=== PATIENT | female | born 2000 | race Caucasian/White ===

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

== ENCOUNTER 2020-07-29 03:16 | Emergency (ER) | payer MEDICAID, SELFPAY ==
[2020-07-29 03:18] VITALS: BP 136/72; PULSE 104; RESP 20; TEMP 35.7; O2SAT 100; BMI 30.9
--- NOTE | 2020-07-29 03:36 | ED.DCSUM_ITS ---
History of Present Illness Chief Complaint: Nausea/Vomiting Informant: Patient Narrative: Patient stated she developed nausea with vomiting approximately 2 hours ago at home. She ate some pizza this evening. She had 2 episodes of diarrhea and greater than 10 episodes of nonbloody emesis. She has some abdominal pain periumbilical that is sharp in nature mainly with vomiting. No fevers or chills. No home treatment. She has had this in the past. Worsened by nothing. Relieved by nothing. She rarely gets menses Secondary to her IUD. Denies . 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 (4) Lactic acidosis Status: Resolved Comment: trending down lactate level Past Medical History - Allergies and Home Meds Allergies/Adverse Reactions: Allergies bee venom protein (honey bee) Allergy (Verified 07/29/20 03:17) Hives cashew nut Allergy (Verified 07/29/20 03:17) Swelling tree nut Allergy (Verified 07/29/20 03:17) Anaphylaxis fluticasone [From Flonase] Adverse Reaction (Verified 07/29/20 03:17) Other SNEEZING, ASTHMA Primary Care Physician: Jenn Scott MD [NON-STAFF] - Prior records reviewed: Yes Past Medical History: - - See HPI Surgical History: - - Reviewed Alcohol: None Drugs: None - Family History Maternal Family History: Reports: Diabetes Review of Systems General: Denies: Chills, Fever, Sweats Eyes: Denies: Visual changes - bilaterally, Diplopia ENT: Denies: Rhinorrhea, Sore throat Cardiovascular: Denies: Chest pain, Palpitations Respiratory: Denies: Dyspnea, Cough, Dyspnea on exertion Gastrointestinal: Reports: Abdominal pain, Nausea, Vomiting, Diarrhea. Denies: Melena, Hematochezia Genitourinary: Denies: Dysuria, Hematuria, Frequency Musculoskeletal: Denies: Back pain, Extremity Pain Skin: Denies: Rash, Wounds Neurological: Denies: Headache, Weakness, Numbness Physical Exam Vital Signs/Narrative: Vital Signs Temp Pulse Resp BP Pulse Ox 07/29/20 03:18 96.2 F L 104 H 20 H 136/72 H 100 General: Well nourished, Well developed, No Acute Distress Head: Normocephalic, Atraumatic Eyes: Perrl, EOMI ENT: Moist mucous membranes, No rhinorrhea Neck: Supple, Nontender Cardiovascular: Regular rate, Regular rhythm, No murmurs Respiratory: No distress, CTA bilaterally, Chest nontender Abdomen: Soft, Nontender, Nondistended, Normal bowel sounds Back: Nontender, Normal Inspection Extremities: Nontender, No edema Skin: Normal color, No rash Neurological: Alert, Oriented x3, Cranial nerves II-XII grossly intact, Normal Strength, Normal Sensation Psychological: Normal affect, Normal Mood Diagnostic/Tx/Re-eval - Medical Decision Making Given IV fluids Toradol Zofran. Lab work obtained and lab work shows a leukocyte count of 24,000. I suspect a lot of this is acute phase reactant secondary to up to 20 episodes of vomiting in the last 2 hours. She stated she felt fine before this came on tonight. She also had 2 episodes of diarrhea. She was able to give a urine specimen which appeared slightly dark. Urinalysis did show white blood cells epithelials and 3+ bacteria. I will err on the side of caution and treat this. She is not having any urinary symptoms however. She is having no pain over her kidneys. She points to just above her umbilicus where she feels discomfort which is better after Toradol. Her nausea has subsided after Zofran. Patient given 2 L of fluid in the department. CT abdomen pelvis was obtained shows nothing acute. No evidence of appendicitis. Patient given a dose of ceftriaxone in the department. I discussed admission versus discharge with the patient and feel she can go home. She is in agreement to this. Again I feel her leukocytosis is likely acute reaction to the amount of vomiting she was having at home. She would like to try antibiotics. I will give her Cipro and Zofran for home. She will return if she worsens ED Disposition - Plan for ED Patient: Disposition: Home or Assisted Living Diagnosis: Nausea and vomiting, Urinary tract infection, Epigastric abdominal pain Instructions: ED Vomiting and Diarrhea Nonspecific Adult, Understanding Urinary Tract Infections (UTIs) Prescriptions: Ciprofloxacin [Cipro] 500 mg PO BID #14 tab Transmission Status: Pending to [facility] Ondansetron [Zofran Odt] 8 mg PO Q8H PRN PRN #20 tab PRN Reason: Nausea Transmission Status: Pending to [facility] Referrals: Jenn Scott MD [NON-STAFF] -
[2020-07-29 03:41] LABS: Absolute Lymphocyte Count 4.66 X10^3/uL (0.83-4.51); Absolute Neutrophil Count 17.6 X10^3/uL (2.0-7.7); Basophil# 0.05 X10^3/uL; Basophil% 0.2 % (0-1); Eosinophil# 0.54 X10^3/uL; Eosinophils% 2.2 % (0-5); Hematocrit 42.4 % (37-47); Hemoglobin 14.5 g/dL (12.0-15.0); Lymphocyte # 4.66 X10^3/ul (4.0); Lymphocyte % 19.1 % (19-41); Mean Corp Hgb Conc 34.2 g/dL (32-36); Mean Corpuscular Hgb 29.1 pg (27.0-32.0); Mean Corpuscular Volume 85.1 fL (81-99); Monocyte# 1.37 X10^3/uL; Monocyte% 5.6 % (0-10); NRBC Flagged by Analyzer 0 % (0-5); Neutrophil % 72.3 % (47-70); Platelet Count 347 K/mm3 (150-450); RBC Distribution Width CV 12.6 % (11.6-14.6); RBC Distribution Width SD 38.4 fl (35.1-43.9); Red Blood Count 4.98 M/mm3 (4.2-5.4); White Blood Count 24.4 K/mm3 (4.4-11.0)
[2020-07-29] MEDS: 0.9% Normal Saline 1,000 ML 1000 ML IV ×2 (03:42→05:27)
[2020-07-29] MEDS: Ketorolac 30 MG/ML Syringe IV (03:42)
[2020-07-29] MEDS: Ondansetron 4 MG/2 ML Vial IV (03:42)
--- NOTE | 2020-07-29 03:47 | CT_ITS ---
STUDY: CT ABDOMEN AND PELVIS WITHOUT CONTRAST REASON FOR EXAM: Female, 20 years old. Abdominal pain, nausea and vomiting. Elevated white blood count. Negative test. RADIATION DOSAGE (If Supplied By Facility): CTDIvol = ( 12.01 ) mGy, DLP = ( 654.05 ) mGycm TECHNIQUE: Transaxial images were obtained from the dome of the diaphragm to the symphysis pubis without oral contrast, and without intravenous contrast. Sagittal and coronal images were reconstructed. Individualized dose optimization techniques were used for this CT. COMPARISON: February 02, 2019. FINDINGS: The visualized lung bases are unremarkable. The visualized portions of the heart are within normal limits. Normal liver. Normal gallbladder and extrahepatic biliary system. Normal spleen. Normal pancreas. Normal bilateral adrenal glands. Normal right kidney. Several 1 mm nonobstructing inferior pole left renal calculi, unchanged. 2 mm x 2 mm calcification anterior to the left psoas muscle, outside the course of the left ureter, most likely representing an incidental phlebolith and not present previously. Stomach is not well distended limiting evaluation. Normal small intestine. Normal colon. The appendix is visualized and appears normal. Normal abdominal aorta. Normal inferior vena cava. Normal retroperitoneum. No intra-abdominal free air. Normal urinary bladder. Uterus is grossly normal. No adnexal mass is seen. Normal abdominal wall. Normal osseous structures. CT/Abdomen/Pelvis without Cont IMPRESSION: No acute findings in the abdomen or pelvis. Small nonobstructing left renal calculi, unchanged. No evidence of bowel obstruction. Normal appendix. Electronically Signed: Ray Albarran MD at 4:57 EDT , Service support ,
[2020-07-29 03:48] LABS: Internal QC Validated? YES +Cl - CLEAR BKGD; Pregnancy, Serum, hCG Quali. NEGATIVE Negative
[2020-07-29 04:01] LABS: ALB/GLOB Ratio 0.9 RATIO (0.9-2.4); AST(SGOT) 28 U/L (15-37); Alanine Aminotransfer ALT/SGPT 28 U/L (13-56); Albumin, Serum 4.1 g/dL (3.2-5.0); Alkaline Phosphatase 81 U/L (45-117); Anion Gap 11 (5-15); BUN 12 mg/dL (7-18); BUN/Creat Ratio 13.4 RATIO (10-20); Calcium,Total 9.6 mg/dL (8.5-10.1); Chloride 105 mmol/L (98-107); Creatinine, Serum 0.89 mg/dL (0.55-1.02); EST Glomerular Filtration Rate 85 mL/min (>60); Est Glom Filt Rate - Afr Amer 103 mL/min (>60); Estimated Creatinine Clearance 87.07 ml/min; Globulin 4.4 g/dL (2.2-4.2); Glucose 140 mg/dL (74-106); Lipase 125 U/L (73-393); Potassium 3.5 mmol/L (3.5-5.1); Protein, Total 8.5 g/dL (6.4-8.2); Sodium Level 135 mmol/L (136-145)
[2020-07-29 04:29] LABS: Color, Urine Straw (Yellow); Glucose, Dipstick Normal (Normal); Ketone-Dipstick 15 mg/dl (Negative); Leukocyte Esterase-Dipstick 25 /ul (Negative); Mucous, Urine 0 SEEN /hpf (<or=2+); Nitrite-Dipstick Negative (Negative); Occult Blood-Urine 250 /ul (Negative); Protein-Dipstick 100 mg/dl (Negative); Urine Bilirubin Dipstick 1 mg/dL (Negative); Urine Clarity Cloudy (Clear); Urine Urobilinogen 1 mg/dl (Normal)
[2020-07-29 04:36] LABS: Bacteria 3+ /hpf (None Seen); Red Blood Cells-Urine 5-10 SEEN /hpf (0-5); Squamous Epithelial Cells - UA 5-10 SEEN /hpf (5-10); White Blood Cells 5-10 SEEN /hpf (0-5); Yeast-Urine 2+ /hpf (None Seen)
[2020-07-29] MEDS: Ceftriaxone 1 GM/50 ML BAG IV (05:26)
[2020-07-29 05:35] VITALS: RESP 18
[2020-07-29 07:39] VITALS: BP 124/74; PULSE 87; RESP 16; O2SAT 99
== END 2020-07-29 07:41 | disposition home or self-care (01) ==
PROVIDERS: Emergency Provider Emergency Medicine
DX: R11.2 Nausea with vomiting, unspecified (principal); N39.0 Urinary tract infection, site not specified; R10.13 Epigastric pain
CPT/HCPCS: 74176; 80053; 81001; 83690; 84703; 85025; 87086; 87088; 96361; 96365; 96366; 96375; 99282; J7030; A4216; J2405

== ENCOUNTER → 2020-10-20 10:18 | Outpatient (CLI) | payer MEDICAID, SELFPAY | PROVIDERS: Referring Provider Otolaryngology; Visit Provider Otolaryngology | DX: Z20.828 Contact with and (suspected) exposure to other viral communicable diseases (principal) | CPT/HCPCS: 87635; C9803; U0003 ==

== ENCOUNTER → 2020-10-25 | Outpatient (CLI) | payer MEDICAID, SELFPAY ==
--- NOTE | 2020-10-25 10:00 | ETH_PTH ---
PATIENT: RITO JENNINGS LOC: [facility]#:[id number] AGE/SX: 20/F ROOM: RE10/25/[address]: Dr. Asad Azul MD : 2000 BED: DIS: 10/25/2020 SPEC #: [id number] RECD: 10/25/20 15:12 STATUS: ANNABEL REMaxi #: [id number] LAINE: 10/25/20 10:[address]: Asad Azul DEPT: SURGICAL PATHOLOGY RECD BY: Nat Stephens ENTERED: 10/26/20 07:08 SP TYPE: ETH TISS OTHR DR: No Primary Care Phys WAS Tissues: Ethmoid sinus, NOS Procedures: Decalcification bone/plaque Surgery Specimen Level III HEADER OPERATION: Septoplasty, submucous resection of inferior turbinates PRE-OP DIAGNOSIS: Nasal airway obstruction; deviated septum; inferior turbinate hypertrophy TISSUE SUBMITTED: Right sinus contents MICROSCOPIC DIAGNOSIS Right sinus contents, excision: Fragments of hyaline cartilage and bone with focal reactive and reparative change. AM:ashly 10/28/20 MICROSCOPIC DESCRIPTION Slides are reviewed. GROSS DESCRIPTION Received in fixative is one container labeled with the patient's name and designated right sinus contents. The specimen consists of multiple irregular fragments of velázquez-white soft tissue and bony tissue that in aggregate measure 2.2 x 2 x 0.2 cm. The specimen is totally submitted in one cassette after decalcification. / SJ:ashly 10/26/20 TC:5 CPT: 16240, 21013
== END | disposition home or self-care (01) ==
LOC: LABSPEC 15:41
PROVIDERS: Visit Provider Otolaryngology
DX: J34.2 Deviated nasal septum (principal); J34.3 Hypertrophy of nasal turbinates
CPT/HCPCS: 88304; 88305; 88311

== ENCOUNTER 2022-02-14 14:41 | Emergency (ER) | payer BC, SELFPAY ==
[2022-02-14 14:42] VITALS: BP 123/75; PULSE 74; RESP 16; TEMP 36.3; O2SAT 98; BMI 34.0
--- NOTE | 2022-02-14 15:05 | ED.VIS.FEGU ---
HPI HPI - Female History of Present Illness Chief Complaint: Vag Bld, Preg Informant: patient Pain Pain: Positive for Pelvic Pain Onset: Today Context: Gradual Onset Timing: Waxes and wanes Quality: Positive for Cramping Location: Suprapubic Current Severity: Mild Maximum Severity: Mild Bleeding Issue: Positive for Vaginal bleeding Onset: Today Current Severity: Spotting Narrative Narrative: Patient presents secondary to vaginal bleeding. She was seen in the [place] emergency room over the weekend and found out she was . Quant was 2033 and ultrasound confirmed intrauterine at 5 weeks 5 days. No cardiac activity noted yet. Patient states she had some cramping today and started noticing some blood when she was wiping. She does not know her blood type. She is scheduled to see Dr. Adriel Stringer for a first-time visit in 2 weeks. [facility] Medical History Asthma Home Medications hydrocodone-acetaminophen 1 tab PO Q6H PRN 3 Days #10 tab 02/14/22 [Rx Last Taken Unknown] Allergy/AdvReac Type Severity Reaction Status Date / Time bee venom protein (honey bee) Allergy Hives Verified 02/14/22 14:42 cashew nut Allergy Swelling Verified 02/14/22 14:42 tree nut Allergy Anaphylaxis Verified 02/14/22 14:42 fluticasone [From Flonase] AdvReac Other Verified 02/14/22 14:42 Social History Smoking Status: Never smoker ROS ROS ED Constitutional Constitutional ED: Denies chills or fever(s) Eyes Eyes: Denies change in vision ENT ENT ED: Denies sore throat Cardiovascular Cardiovascular: Denies chest pain Respiratory/Chest Respiratory/Chest: Denies cough or dyspnea Gastrointestinal Gastrointestinal: Reports abdominal pain; Denies nausea or vomiting Genitourinary Genitourinary ED: Denies dysuria Musculoskeletal Musculoskeletal: Denies back pain Integumentary Denies rash Neurologic Neurologic: Denies headache(s) or weakness Allergic/Immunologic Allergic/Immunologic ED: Denies urticaria EXAM Physical Exam Const Vital Signs: 02/14/22 14:42 Temperature 97.3 F L Temperature Source Temporal Pulse Rate 74 Respiratory Rate 16 Blood Pressure 123/75 H Blood Pressure Mean 91 Pulse Ox 98 Oxygen Delivery Method Room Air Positive well nourished and well developed General Appearance ED: well developed HEENT Reports moist mucous membranes Eyes PERRL and EOMs intact bilaterally Neck supple Chest Wall inspection of chest normal and palpation of chest normal Resp normal respiratory effort and clear to auscultation bilaterally Cardio regular rate and regular rhythm GI soft to palpation and non-tender Extremity normal to inspection Neuro oriented x3 Sensorium / Orientation: alert Psych mental status grossly normal Skin no rashes or lesions noted MDM MDM MDM Narrative Medical decision making narrative: Urinalysis obtained along with quant and blood type. Lab Data Attestation: I reviewed the patient's lab results. Labs: Laboratory Results - last 24 hr 02/14/22 02/14/22 02/14/22 15:10 15:20 15:20 HCG, Quant 979 H Urine Color Yellow Urine Clarity Sl. Cloudy Urine pH 6.0 Ur Specific [place] 1.025 Urine Protein 30 H Urine Glucose (UA) Normal Urine Ketones 5 H Urine Occult Blood 250 H Urine Nitrite Negative Urine Bilirubin Negative Urine Urobilinogen Normal Ur Leukocyte Esterase 100 H Urine RBC 0-5 SEEN Urine WBC 0-5 SEEN Ur Squamous Epith Cells 0-5 SEEN Urine Bacteria RARE Urine Mucus 0 SEEN Blood Type O POSITIVE Treatment and Re-Evaluation Narrative: Urinalysis reveals no sign of acute infection. Blood type is O+. Quant is 979. This is compared to a quant of 2033 obtained on February 11. I spoke with Dr. Lidia Pride, on-call for [employer]. She does not see that the patient is scheduled to see them. After speaking with the patient she states that she is still listed under her maiden name in the office and that is why they did not recognize her upcoming appointment. Test results are discussed with the patient and family at bedside. I told her that her lab work is indicative of a miscarriage. I suspect that at 5 weeks she would likely pass everything similar to a heavy period. She will be given analgesics for cramping should this get worse. Return instructions are provided. Discharge Plan Triage Chief Complaint: Vag Bld, Preg ED Provider: Veena Bhat Dx/Rx/DC Orders Clinical Impression: Miscarriage Instructions: ED MISCARRIAGE Incomplete Prescriptions: New hydrocodone-acetaminophen 5-325 mg tablet 1 tab PO Q6H PRN (Reason: pain) 3 Days Qty: 10 RF: 0 Primary Care Provider: Care Physician,Kavya Primary Referrals: Adriel Stringer MD [STAFF PHYSICIAN] - 1 Week Care Physician,No Primary [Primary Care Provider] - Disposition Disposition: Home, Self Care
[2022-02-14 15:28] LABS: Mucous, Urine 0 SEEN /hpf (<or=2+)
[2022-02-14 15:33] LABS: Color, Urine Yellow (Yellow); Glucose, Dipstick Normal (Normal); Ketone-Dipstick 5 mg/dl (Negative); Leukocyte Esterase-Dipstick 100 /ul (Negative); Nitrite-Dipstick Negative (Negative); Occult Blood-Urine 250 /ul (Negative); Protein-Dipstick 30 mg/dl (Negative); Specific Gravity, Urine 1.025 (1.002-1.030); Urine Bilirubin Dipstick Negative (Negative); Urine Clarity Sl. Cloudy (Clear); Urine Urobilinogen Normal (Normal)
[2022-02-14 15:46] LABS: Bacteria RARE /hpf (None Seen); Red Blood Cells-Urine 0-5 SEEN /hpf (0-5); Squamous Epithelial Cells - UA 0-5 SEEN /hpf (5-10); White Blood Cells 0-5 SEEN /hpf (0-5)
[2022-02-14 16:10] LABS: hCG Titer Quant., Serum 979 mIU/mL (1-3)
== END 2022-02-14 16:43 | disposition home or self-care (01) ==
PROVIDERS: Emergency Provider Emergency Medicine; Visit Provider Emergency Medicine
DX: O03.4 Incomplete spontaneous abortion without complication (principal)
CPT/HCPCS: 81001; 84702; 86900; 86901; 99283; A4216

== ENCOUNTER → 2022-02-28 | Outpatient (CLI) | payer BC, SELFPAY ==
[2022-02-28 12:42] LABS: hCG Titer Quant., Serum 94 mIU/mL (1-3)
== END | disposition home or self-care (01) ==
PROVIDERS: Visit Provider Obstetrics & Gynecology
DX: O03.9 Complete or unspecified spontaneous abortion without complication (principal)
CPT/HCPCS: 36415; 84702; 86900; 86901

== ENCOUNTER 2022-07-25 09:59 | Emergency (ER) | payer MEDICAID, SELFPAY ==
[2022-07-25 10:00] VITALS: BP 147/86; PULSE 90; RESP 18; TEMP 36.6; O2SAT 98; BMI 36.0
--- NOTE | 2022-07-25 10:29 | US_ITS ---
STUDY: FIRST TRIMESTER OBSTETRICAL ULTRASOUND REASON FOR EXAM: Female, 22 years old vag bleed -- 8 weeks by dates LMP: 06/01/2022. TECHNIQUE: Transabdominal TECHNICAL QUALITY: Adequate. PRIOR ULTRASOUND: None. FINDINGS: There is a gestational sac in the lower uterine segment. The mean sac diameter (MSD) measures 2.54 cm, indicating an estimated gestational age (EGA) of 7 weeks, 4 days. The gestational sac shape is within normal limits. There is a visualized yolk sac. The yolk sac measures 3.6 mm. The placenta is non-visualized. There is visualization of a live embryo. The crown-rump length (CRL) measures 1.28 cm, indicating an estimated gestational age (EGA) of 7 weeks, 4 days. There is demonstrated cardiac activity with a heart rate of 147 bpm. The estimated gestation age (EGA) by LMP is 7 weeks, 5 days. The estimated date of delivery (HETAL) by LMP is 03/08/2023. The estimated gestation age (EGA) by US is 7 weeks, 4 days. The estimated date of delivery (HETAL) by US is 03/09/2023. The uterus measures 9.5 cm x 6.8 cm by 5.3 cm. There is no demonstrated uterine fibroid. The cervix is closed. The right ovary measures 3.4 cm x 2.6 cm x 3.2 cm. There is a 2.3 cm x 1.9 cm x 2.2 cm corpus luteum cyst. There is no visualized right adnexal mass or complex lesion. The left ovary was not visualized. There is no fluid in the cul de sac. US/Init OB < 14Wks US IMPRESSION: Single live intrauterine gestation with a mean gestational age of 7 weeks and 4 days. The gestational sac is seen in the lower uterine segment. 2.3 cm x 1.9 cm x 2.2 cm right corpus luteum cyst. Electronically Signed: Lasha Jordan MD at 12:38 EDT ,
--- NOTE | 2022-07-25 10:35 | EDS_ITS ---
HPI HPI - Female History of Present Illness Chief Complaint: Vag Bld, Preg Informant: patient Narrative Narrative: Patient presents noting blood after using the restroom and small clot while wiping. 8 weeks gestation by dates. She has upcoming appoint with Dr. Adriel Stringer next week. She had a miscarriage this past January with cramping. There is no intervention required. No urinary symptoms. No abdominal pain. No fevers. Denies alcohol tobacco or illicit drug use. Prior similar symptoms: Yes PFSH PFSH Medical History Asthma Home Medications hydrocodone-acetaminophen 5-325mg 5mg-325mg 1 tab PO Q6H PRN pain 3 days #10 tabs 02/14/22 [Rx Last Taken Unknown] cephalexin 500 mg capsule 500 mg PO Q12 #9 caps 07/25/22 [Rx Last Taken Unknown] Allergy/AdvReac Type Severity Reaction Status Date / Time bee venom protein (honey bee) Allergy Hives Verified 07/25/22 10:02 cashew nut Allergy Swelling Verified 07/25/22 10:02 tree nut Allergy Anaphylaxis Verified 07/25/22 10:02 fluticasone [From Flonase] AdvReac Other Verified 07/25/22 10:02 Social History Smoking Status: Never smoker EXAM Physical Exam Const Vital Signs: 07/25/22 10:00 07/25/22 13:24 07/25/22 13:27 Temperature 98 F Temperature Source Temporal Pulse Rate 90 73 Respiratory Rate 18 16 Blood Pressure 147/86 H Blood Pressure Mean 106 Pulse Ox 98 99 Oxygen Delivery Method Room Air Room Air [facility] Lab Data Labs: Laboratory Results - last 24 hr 07/25/22 07/25/22 10:45 10:52 HCG, Quant 99946 H Urine Color Yellow Urine Clarity Clear Urine pH 8.0 Ur Specific [place] 1.015 Urine Protein Negative Urine Glucose (UA) Normal Urine Ketones Negative Urine Occult Blood 250 H Urine Nitrite Negative Urine Bilirubin Negative Urine Urobilinogen Normal Ur Leukocyte Esterase 25 H Urine RBC 0-5 SEEN Urine WBC 0-5 SEEN Ur Squamous Epith Cells 0-5 SEEN Urine Bacteria RARE Urine Mucus 0 SEEN Radiography Diagnostic Testing: Clinical Impression(s) from Imaging Studies Obstetrics Ultrasound 07/25/22 10:29 IMPRESSION: Single live intrauterine gestation with a mean gestational age of 7 weeks and 4 days. The gestational sac is seen in the lower uterine segment. 2.3 cm x 1.9 cm x 2.2 cm right corpus luteum cyst. Electronically Signed: Lasha Jordan MD at 12:38 EDT , Discharge Plan Triage Chief Complaint: Vag Bld, Preg ED Provider: Sincere Alston Dx/Rx/DC Orders Clinical Impression: Threatened miscarriage, First trimester , UTI in , Corpus luteum cyst Instructions: Urinary Tract Infections in Women, ED Possible Miscarriage ... Prescriptions: New cephalexin [cephalexin] 500 mg capsule 500 mg PO Q12 Qty: 9 0RF No Action hydrocodone-acetaminophen 5-325 mg tablet 1 tab PO Q6H PRN (Reason: pain) 3 Days Qty: 10 0RF Primary Care Provider: Care Physician,No Primary Referrals: Adriel Stringer MD [Med Staff - Active Staff] - Keep Espinoza appointment Care Physician,No Primary [Primary Care Provider] - Activity Restrictions/Additional Instructions: 7-week 4-day heart tones 147. Corpus luteum cyst also found. Take antibiotic as prescribed for UTI. Urine culture pending. Pelvic rest as discussed. Keep follow-up with your OB. Disposition Disposition: Home, Self Care Discharge Date/Time: 07/25/22 13:34
--- NOTE | 2022-07-25 10:35 | EDS_ITS ---
HPI HPI - Female History of Present Illness Chief Complaint: Vag Bld, Preg Informant: patient Narrative Narrative: 8-week gestation by dates has a pending OB appointment next week with Dr. Adriel Stringer. Miscarriage back in January with no required intervention. Blood type a positive. This morning a code rescue noted bright red blood wiping noted small clot. Denies cramping. Denies urinary symptoms. Denies abnormal vaginal discharge. Denies any alcohol, tobacco or any illicit drug use. Denies any urinary symptoms. History of IBS and asthma. Prior similar symptoms: Yes PFSH PFSH Medical History Asthma Home Medications hydrocodone-acetaminophen 5-325mg 5mg-325mg 1 tab PO Q6H PRN pain 3 days #10 tabs 02/14/22 [Rx Last Taken Unknown] cephalexin 500 mg capsule 500 mg PO Q12 #9 caps 07/25/22 [Rx Last Taken Unknown] Allergy/AdvReac Type Severity Reaction Status Date / Time bee venom protein (honey bee) Allergy Hives Verified 07/25/22 10:02 cashew nut Allergy Swelling Verified 07/25/22 10:02 tree nut Allergy Anaphylaxis Verified 07/25/22 10:02 fluticasone [From Flonase] AdvReac Other Verified 07/25/22 10:02 Social History Smoking Status: Never smoker ROS ROS ED Constitutional Constitutional ED: Denies chills, fever(s) or sweats Eyes Eyes: Denies change in vision ENT ENT ED: Denies dysphagia or sore throat Cardiovascular Cardiovascular: Denies chest pain, leg edema, palpitations or racing heartbeat Respiratory/Chest Respiratory/Chest: Denies cough, dyspnea or dyspnea on exertion Gastrointestinal Gastrointestinal: Denies abdominal pain, diarrhea, nausea or vomiting Genitourinary Genitourinary ED: Reports other Details: Vaginal bleeding ; Denies dysuria, hematuria or urinary frequency Musculoskeletal Musculoskeletal: Denies back pain, extremity pain or neck pain Integumentary Denies rash or wounds Neurologic Neurologic: Denies headache(s), paresthesias or weakness EXAM Physical Exam Const Vital Signs: 07/25/22 10:00 07/25/22 13:24 07/25/22 13:27 Temperature 98 F Temperature Source Temporal Pulse Rate 90 73 Respiratory Rate 18 16 Blood Pressure 147/86 H Blood Pressure Mean 106 Pulse Ox 98 99 Oxygen Delivery Method Room Air Room Air Positive well nourished and well developed General Appearance ED: well developed and NAD HEENT Reports moist mucous membranes normocephalic and atraumatic Eyes PERRL, EOMs intact bilaterally and conjunctivae normal General Eye ED: Yes normal appearance of both eyes Neck no lymphadenopathy and supple General: Negative for tenderness Chest Wall Chest: Negative for tenderness Resp normal respiratory effort and normal air movement Effort and Inspection: symmetric chest movement; Negative for respiratory distress Cardio regular rate, regular rhythm and no murmurs Peripheral Pulses: pulses 2+ throughout GI normal to inspection, nondistended, normoactive bowel sounds and non-tender Palpation: Negative for guarding or rebound tenderness present Back/Spine no CVA tenderness and no thoracic nor lumbar tenderness Extremity normal to inspection General Extremety ED: Negative for edema or tenderness General Extremity: Negative for edema Neuro oriented x3 and no sensory deficits noted Sensorium / Orientation: awake and alert Skin no rashes or lesions noted and no wounds MDM MDM MDM Narrative Medical decision making narrative: Patient vital signs stable. She O+ blood type in the system. hCG quant at 36,000 578. Ultrasound notes a single live intrauterine at 7 weeks 4 days. heart tones 147. Corpus luteum cyst right side of 2.3 cm. Urine noted signs of infection culture sent. With threatened miscarriage she started on Keflex. Pelvic rest discussed. Monitor for bleeding. Follow-up with her OB as scheduled next week. All questions were answered. Lab Data Attestation: I reviewed the patient's lab results. Labs: Laboratory Results - last 24 hr 07/25/22 07/25/22 10:45 10:52 HCG, Quant [id number] H Urine Color Yellow Urine Clarity Clear Urine pH 8.0 Ur Specific [place] 1.015 Urine Protein Negative Urine Glucose (UA) Normal Urine Ketones Negative Urine Occult Blood 250 H Urine Nitrite Negative Urine Bilirubin Negative Urine Urobilinogen Normal Ur Leukocyte Esterase 25 H Urine RBC 0-5 SEEN Urine WBC 0-5 SEEN Ur Squamous Epith Cells 0-5 SEEN Urine Bacteria RARE Urine Mucus 0 SEEN Radiography Diagnostic Testing: Clinical Impression(s) from Imaging Studies Obstetrics Ultrasound 07/25/22 10:29 IMPRESSION: Single live intrauterine gestation with a mean gestational age of 7 weeks and 4 days. The gestational sac is seen in the lower uterine segment. 2.3 cm x 1.9 cm x 2.2 cm right corpus luteum cyst. Electronically Signed: Lasha Jordan MD at 12:38 EDT , Discharge Plan Triage Chief Complaint: Vag Bld, Preg ED Provider: Sincere Alston Dx/Rx/DC Orders Clinical Impression: Threatened miscarriage, First trimester , UTI in , Corpus luteum cyst Instructions: Urinary Tract Infections in Women, ED Possible Miscarriage ... Prescriptions: New cephalexin [cephalexin] 500 mg capsule 500 mg PO Q12 Qty: 9 0RF No Action hydrocodone-acetaminophen 5-325 mg tablet 1 tab PO Q6H PRN (Reason: pain) 3 Days Qty: 10 0RF Primary Care Provider: Care Physician,No Primary Referrals: Adriel Stringer MD [Med Staff - Active Staff] - Keep Espinoza appointment Care Physician,No Primary [Primary Care Provider] - Activity Restrictions/Additional Instructions: 7-week 4-day heart tones 147. Corpus luteum cyst also found. Take antibiotic as prescribed for UTI. Urine culture pending. Pelvic rest as discussed. Keep follow-up with your OB. Disposition Disposition: Home, Self Care Discharge Date/Time: 07/25/22 13:34
[2022-07-25 10:59] LABS: Mucous, Urine 0 SEEN /hpf (<or=2+)
[2022-07-25 11:05] LABS: Color, Urine Yellow (Yellow); Glucose, Dipstick Normal (Normal); Ketone-Dipstick Negative (Negative); Leukocyte Esterase-Dipstick 25 /ul (Negative); Nitrite-Dipstick Negative (Negative); Occult Blood-Urine 250 /ul (Negative); Protein-Dipstick Negative (Negative); Specific Gravity, Urine 1.015 (1.002-1.030); Urine Bilirubin Dipstick Negative (Negative); Urine Clarity Clear (Clear); Urine Urobilinogen Normal (Normal)
[2022-07-25 11:15] LABS: Bacteria RARE /hpf (None Seen); Red Blood Cells-Urine 0-5 SEEN /hpf (0-5); Squamous Epithelial Cells - UA 0-5 SEEN /hpf (5-10); White Blood Cells 0-5 SEEN /hpf (0-5)
[2022-07-25 11:37] LABS: hCG Titer Quant., Serum 36578 mIU/mL (1-3)
--- NOTE | 2022-07-25 13:00 | CM.ED ---
SW Note SW noted that patient has no PCP. SW met with patient and provided her with [facility] List of Healthcare Providers. No further SW needs voiced at the time. SW remains available if needs arise. Plan: Resources provided Ivana BARNETT
[2022-07-25] MEDS: Cephalexin 250 MG Capsule 500 MG PO (13:23)
[2022-07-25 13:24] VITALS: RESP 16
[2022-07-25 13:27] VITALS: PULSE 73; O2SAT 99
== END 2022-07-25 13:34 | disposition home or self-care (01) ==
PROVIDERS: Emergency Provider Emergency Medicine; Visit Provider Emergency Medicine
DX: O20.0 Threatened abortion (principal); O23.41 Unspecified infection of urinary tract in pregnancy, first trimester; O34.81 Maternal care for other abnormalities of pelvic organs, first trimester; N83.11 Corpus luteum cyst of right ovary; Z3A.01 Less than 8 weeks gestation of pregnancy
CPT/HCPCS: 76801; 81001; 84702; 87086; 87088; 99284; A4216

== ENCOUNTER 2022-08-01 08:32 | Emergency (ER) | payer SELFPAY ==
[2022-08-01 08:32] VITALS: BP 122/77; PULSE 100; RESP 16; TEMP 36.1; O2SAT 98; BMI 36.7
--- NOTE | 2022-08-01 09:13 | EDS_ITS ---
HPI History of Present Illness Chief Complaint: Nausea/Vomiting/Diarrhea Informant: patient Narrative Narrative: 8-week 4-day gestation by ultrasound presents for diarrhea for 2 days vomiting today. She ate [place] food 2 days ago that evening. Loose stools nonbloody. Had it throughout the day yesterday today had at least 4 episodes yellow stools. Vomiting x4 currently nausea no hematemesis. Denies abdominal pain denies fevers denies urinary symptoms. Of note seen by myself a week ago with a diagnosis confirming with threatened miscarriage. No current vaginal bleeding. She had UTI in finished her Keflex 2 days ago. Culture in the records are just mixed likely contaminant. No one else sick in the house. [facility] Medical History Anxiety Asthma Depression IBS (irritable bowel syndrome) Allergy/AdvReac Type Severity Reaction Status Date / Time bee venom protein (honey bee) Allergy Hives Verified 08/01/22 08:32 cashew nut Allergy Swelling Verified 08/01/22 08:32 tree nut Allergy Anaphylaxis Verified 08/01/22 08:32 fluticasone [From Flonase] AdvReac Other Verified 08/01/22 08:32 Social History Smoking Status: Never smoker ROS ROS ED Constitutional Constitutional ED: Denies chills, fever(s) or sweats Eyes Eyes: Denies change in vision ENT ENT ED: Denies dysphagia or sore throat Cardiovascular Cardiovascular: Denies chest pain, leg edema, palpitations or racing heartbeat Respiratory/Chest Respiratory/Chest: Denies cough, dyspnea or dyspnea on exertion Gastrointestinal Gastrointestinal: Reports diarrhea and vomiting; Denies abdominal pain or nausea Genitourinary Genitourinary ED: Denies dysuria, hematuria or urinary frequency Musculoskeletal Musculoskeletal: Denies back pain, extremity pain or neck pain Integumentary Denies rash or wounds Neurologic Neurologic: Denies headache(s), paresthesias or weakness EXAM Physical Exam Const Vital Signs: 08/01/22 08:32 08/01/22 12:13 08/01/22 15:13 Temperature 97.0 F L Temperature Source Temporal Pulse Rate 100 80 Respiratory Rate 16 16 Blood Pressure 122/77 H 113/66 123/78 H Blood Pressure Mean 92 81 Pulse Ox 98 99 Oxygen Delivery Method Room Air Room Air Positive well nourished and well developed General Appearance ED: well developed and NAD HEENT Reports moist mucous membranes normocephalic and atraumatic Eyes PERRL, EOMs intact bilaterally and conjunctivae normal General Eye ED: Yes normal appearance of both eyes Neck no lymphadenopathy and supple General: Negative for tenderness Chest Wall Chest: Negative for tenderness Resp normal respiratory effort and normal air movement Effort and Inspection: symmetric chest movement; Negative for respiratory distress Cardio regular rate, regular rhythm and no murmurs Peripheral Pulses: pulses 2+ throughout GI normal to inspection, nondistended, normoactive bowel sounds and non-tender Palpation: Negative for guarding or rebound tenderness present Back/Spine no CVA tenderness and no thoracic nor lumbar tenderness Extremity normal to inspection General Extremety ED: Negative for edema or tenderness General Extremity: Negative for edema Neuro oriented x3 and no sensory deficits noted Sensorium / Orientation: awake and alert Skin no rashes or lesions noted and no wounds MDM MDM MDM Narrative Medical decision making narrative: Patient nontender abdomen. Nursing unable to obtain heart tones bedside ultrasound performed by myself noted heart tone of 127. Cyst lesion right adnexa also observed with her known right corpus luteum cyst. Results White count of 14. Creatinine 0.57. She is given fluids and IV Reglan initially. Symptoms were improving. Urine obtained noted white cells small leukocytes however had squamous cells 5-10. I recent cultures. Reviewing her cultures from a week ago was contaminant. She finished antibiotics yesterday. I will hold on antibiotics currently pending cultures. She require additional Reglan for symptom control. She is tolerating oral fluid intake. She reports she has promethazine sent to her pharmacy from her OB office that is waiting for her to pick up worker. I was able to obtain stool studies C. difficile negative along with enteropathic pathogens also negative from the lab. She is reassured discussed likely viral gastroenteritis at this time. Discussed importance of continuing oral fluids for hydration. She has an appointment with her OB tomorrow for which she will keep. Return precautions. All questions answered. Lab Data Attestation: I reviewed the patient's lab results. Labs: Laboratory Results - last 24 hr 08/01/22 08/01/22 08/01/22 08:50 08:50 09:34 WBC 14.7 H RBC 4.68 Hgb 13.4 Hct 40.2 MCV 85.9 MCH 28.6 MCHC 33.3 RDW Std Deviation 40.4 RDW Coeff of [place] 13.1 Plt Count 328 MPV 9.1 Immature Gran % (Auto) 0.800 Neut % (Auto) 81.4 H Lymph % (Auto) 9.9 L [place] % (Auto) 4.8 Eos % (Auto) 3.0 Baso % (Auto) 0.1 Absolute Neuts (auto) 12.0 H Absolute Lymphs (auto) 1.45 Nucleated RBC % 0 Sodium 134 L Potassium 4.5 Chloride 107 Carbon Dioxide 18.0 L Anion Gap 9 BUN 7 Creatinine 0.57 Estim Creat Clear Calc 133.68 Est GFR (MDRD) Af Amer 170 Est GFR (MDRD) Non-Af 140 BUN/Creatinine Ratio 12.3 Glucose 104 Calcium 9.4 Urine Color Yellow Urine Clarity Sl. Cloudy Urine pH 6.0 Ur Specific [place] 1.020 Urine Protein 30 H Urine Glucose (UA) Normal Urine Ketones 50 H Urine Occult Blood 10 H Urine Nitrite Negative Urine Bilirubin Negative Urine Urobilinogen Normal Ur Leukocyte Esterase 100 H Urine RBC 0-5 SEEN Urine WBC 10-25 SEEN Ur Squamous Epith Cells 5-10 SEEN Urine Bacteria 1+ Urine Mucus 2+ Discharge Plan Triage Chief Complaint: Nausea/Vomiting/Diarrhea ED Provider: Sincere Alston Dx/Rx/DC Orders Clinical Impression: Nausea vomiting and diarrhea, First trimester Instructions: ED Gastroenteritis, Viral (Adult) Primary Care Provider: Care Physician,No Primary Referrals: Adriel Srtinger MD [Med Staff - Active Staff] - Keep Espinoza appointment Care Physician,No Primary [Primary Care Provider] - Activity Restrictions/Additional Instructions: Stool studies negative for C. difficile or any enteropathic pathogens. Labs were stable. Urine culture sent since she just finished antibiotics. No urine symptoms. Continue oral fluids for hydration. Your reported promethazine is at your pharmacy which should pick up worker to use as needed. Keep your follow-up tomorrow. Return if any worsening symptoms. Disposition Disposition: Home, Self Care Discharge Date/Time: 08/01/22 15:13
[2022-08-01 09:19] LABS: Absolute Lymphocyte Count 1.45 X10^3/uL (0.83-4.51); Basophil# 0.02 X10^3/uL; Basophil% 0.1 % (0-1); Eosinophil# 0.44 X10^3/uL; Hematocrit 40.2 % (37-47); Hemoglobin 13.4 g/dL (12.0-15.0); Lymphocyte # 1.45 X10^3/ul (0.83-4.51); Lymphocyte % 9.9 % (19-41); Mean Corp Hgb Conc 33.3 g/dL (32-36); Mean Corpuscular Hgb 28.6 pg (27.0-32.0); Mean Corpuscular Volume 85.9 fL (81-99); Mean Platelet Vol. 9.1 fl (6.2-12.0); Monocyte# 0.71 X10^3/uL; Monocyte% 4.8 % (0-10); NRBC Flagged by Analyzer 0 % (0-5); Neutrophil # 11.97 X10^3/uL (2.7-7.7); Neutrophil % 81.4 % (47-70); Platelet Count 328 K/mm3 (150-450); RBC Distribution Width CV 13.1 % (11.6-14.6); RBC Distribution Width SD 40.4 fl (35.1-43.9); Red Blood Count 4.68 M/mm3 (4.2-5.4); White Blood Count 14.7 K/mm3 (4.4-11.0)
[2022-08-01 09:41] LABS: Color, Urine Yellow (Yellow); Glucose, Dipstick Normal (Normal); Ketone-Dipstick 50 mg/dl (Negative); Leukocyte Esterase-Dipstick 100 /ul (Negative); Nitrite-Dipstick Negative (Negative); Occult Blood-Urine 10 /ul (Negative); Protein-Dipstick 30 mg/dl (Negative); Urine Bilirubin Dipstick Negative (Negative); Urine Clarity Sl. Cloudy (Clear); Urine Urobilinogen Normal (Normal)
[2022-08-01 09:43] LABS: Anion Gap 9 (5-15); BUN 7 mg/dL (7-18); BUN/Creat Ratio 12.3 RATIO (10-20); Calcium,Total 9.4 mg/dL (8.5-10.1); Chloride 107 mmol/L (98-107); Creatinine, Serum 0.57 mg/dL (0.55-1.02); EST Glomerular Filtration Rate 140 mL/min (>60); Est Glom Filt Rate - Afr Amer 170 mL/min (>60); Estimated Creatinine Clearance 133.68 ml/min; Glucose 104 mg/dL (74-106); Potassium 4.5 mmol/L (3.5-5.1); Sodium Level 134 mmol/L (136-145)
[2022-08-01 09:47] LABS: Bacteria 1+ /hpf (None Seen); Mucous, Urine 2+ /hpf (<or=2+); Red Blood Cells-Urine 0-5 SEEN /hpf (0-5); White Blood Cells 10-25 SEEN /hpf (0-5)
[2022-08-01 09:48] LABS: Squamous Epithelial Cells - UA 5-10 SEEN /hpf (5-10)
[2022-08-01] MEDS: 0.9% Normal Saline 1,000 ML 1000 ML IV (10:22)
[2022-08-01] MEDS: Metoclopramide 10 MG/2 ML Vial 5 MG IV ×2 (10:22→13:08)
[2022-08-01 12:13] VITALS: BP 113/66; PULSE 80; RESP 16; O2SAT 99
--- NOTE | 2022-08-01 12:53 | ED.RN ---
dr. ugalde in with ultrasound for fht
[2022-08-01 15:13] VITALS: BP 123/78
== END 2022-08-01 15:13 | disposition home or self-care (01) ==
PROVIDERS: Emergency Provider Emergency Medicine; Visit Provider Emergency Medicine
DX: O21.0 Mild hyperemesis gravidarum (principal); O99.891 Other specified diseases and conditions complicating pregnancy; R19.7 Diarrhea, unspecified; O34.81 Maternal care for other abnormalities of pelvic organs, first trimester; N83.11 Corpus luteum cyst of right ovary; Z3A.00 Weeks of gestation of pregnancy not specified
CPT/HCPCS: 80048; 81001; 85025; 87086; 87088; 87493; 87506; 96361; 96374; 96376; 99283; J7030; A4216

== ENCOUNTER → 2022-08-02 | Outpatient (CLI) | payer SELFPAY ==
[2022-08-02 10:39] LABS: Absolute Lymphocyte Count 1.24 X10^3/uL (0.83-4.51); Absolute Neutrophil Count 6.9 X10^3/uL (2.0-7.7); Basophil# 0.03 X10^3/uL; Basophil% 0.3 % (0-1); Eosinophil# 0.24 X10^3/uL; Eosinophils% 2.7 % (0-5); Hematocrit 38.1 % (37-47); Hemoglobin 12.5 g/dL (12.0-15.0); Lymphocyte # 1.24 X10^3/ul (0.83-4.51); Lymphocyte % 13.7 % (19-41); Mean Corp Hgb Conc 32.8 g/dL (32-36); Mean Corpuscular Hgb 28.7 pg (27.0-32.0); Mean Corpuscular Volume 87.6 fL (81-99); Monocyte# 0.59 X10^3/uL; Monocyte% 6.5 % (0-10); NRBC Flagged by Analyzer 0 % (0-5); Neutrophil # 6.86 X10^3/uL (2.7-7.7); Neutrophil % 76.1 % (47-70); Platelet Count 325 K/mm3 (150-450); RBC Distribution Width CV 13.1 % (11.6-14.6); RBC Distribution Width SD 41.4 fl (35.1-43.9); Red Blood Count 4.35 M/mm3 (4.2-5.4)
[2022-08-02 11:34] LABS: HIV - WCH Non-Reactive (Nonreactive); Hepatitis B Surface Antigen Non-Reactive (Nonreactive); Hepatitis C Antibody Non-Reactive (Nonreactive); Rubella IgG Reactive (Nonreactive); Syphilis Antibodies Non-reactive
[2022-08-03 10:27] LABS: V-Zoster IgG (Immunity) 220 index (Immune >165)
[2022-08-04 08:10] LABS: Chlamydia By Nucleic Acid AMP Negative (Negative)
[2022-08-04 13:35] LABS: Gonococcus By Nucleic Acid AMP Negative (Negative)
[2022-08-10 09:47] LABS: HPV APTIMA, High Risk Positive (Negative)
[2022-08-10 09:48] LABS: HPV Reflexed? YES, CHARGE PATIENT
== END | disposition home or self-care (01) ==
LOC: WOBLAB 09:38
PROVIDERS: Visit Provider Obstetrics & Gynecology
DX: Z34.81 Encounter for supervision of other normal pregnancy, first trimester (principal); Z12.4 Encounter for screening for malignant neoplasm of cervix; Z11.3 Encounter for screening for infections with a predominantly sexual mode of transmission
CPT/HCPCS: 36415; 85025; 86703; 86762; 86780; 86787; 86803; 87086; 87088; 87340; 87491; 87591; 87624; 88175; G0145

== ENCOUNTER → 2022-12-01 | Outpatient (CLI) | payer OTHER, SELFPAY ==
[2022-12-01 10:02] LABS: Glucose GTT-Gestation. Fasting 93 mg/dL (<105)
[2022-12-01 10:57] LABS: Glucose GTT-Gestational 1 Hr 185 mg/dL (<190)
[2022-12-01 11:34] LABS: Glucose GTT-Gestational 2 Hr 185 mg/dL (<165)
[2022-12-01 13:10] LABS: Glucose GTT-Gestational 3 Hr 185 L (<145)
== END | disposition home or self-care (01) ==
PROVIDERS: Visit Provider Student in an Organized Health Care Education/Training Program
DX: Z34.82 Encounter for supervision of other normal pregnancy, second trimester (principal)
CPT/HCPCS: 36415; 82951; 82952

== ENCOUNTER 2023-02-08 14:42 | Emergency (ER) | payer OTHER, MEDICAID, SELFPAY ==
[2023-02-08 14:43] VITALS: BP 128/90; PULSE 125; RESP 18; TEMP 36.6; O2SAT 98; BMI 38.0
--- NOTE | 2023-02-08 14:56 | ED.VIS.GI ---
HPI HPI - GI History of Present Illness Chief Complaint: Nausea/Vomiting Informant: patient Nausea/Vomiting/Emesis GI Symptom: Positive for Nausea and Vomiting Onset: Days Quality: Positive for Nonbilious Severity: Mild Diarrhea/Melena/Hematochezia GI Symptom: Positive for Diarrhea; Negative for Melena or Hematochezia Stool Quality: Positive for Loose Severity: Mild Associated Symptoms Associated Symptoms: Negative for Dysuria, Frequency, Hematuria or Urgency Narrative Narrative: 23-year-old female history of irritable bowel, anxiety and currently 15 weeks . She is 0 Ab1 with having a miscarriage a year ago. Currently 35 weeks . Said this week she has had nausea and vomiting and 1 or 2 episodes of diarrhea. No dysuria. No fever. No hematuria. No vaginal bleeding. She has Phenergan at home has been unable to keep it down. She is under the care of of PHOTOTYPES[employer]MENT MONITOR Dr. Stringer. Patient was seen in urgent care earlier this week and a negative COVID test and negative influenza test. Prior similar symptoms: Yes Recent Illness/Hospitalization: No PFSH PFSH Medical History Anxiety Asthma Depression IBS (irritable bowel syndrome) Home Medications ondansetron 4 mg disintegrating tablet 4 mg PO Q6H PRN nausea and vomiting #7 tabs 02/08/23 [Rx Last Taken Unknown] Allergy/AdvReac Type Severity Reaction Status Date / Time bee venom protein (honey bee) Allergy Hives Verified 02/08/23 14:45 cashew nut Allergy Swelling Verified 02/08/23 14:45 tree nut Allergy Anaphylaxis Verified 02/08/23 14:45 fluticasone [From Flonase] AdvReac Other Verified 02/08/23 14:45 Social History Smoking Status: Never smoker ROS ROS ED ROS Narrative Nausea, vomiting and mild diarrhea. Review of Systems ROS Unobtainable: Denies due to encephalopathy Constitutional Constitutional ED: Reports fever(s) and subjective; Denies chills ENT ENT ED: Denies ear pain Cardiovascular Cardiovascular: Denies chest pain Respiratory/Chest Respiratory/Chest: Denies cough or dyspnea Gastrointestinal Gastrointestinal: Reports diarrhea, nausea and vomiting; Denies abdominal pain, constipation or melena Genitourinary Genitourinary ED: Denies dysuria or hematuria Musculoskeletal Musculoskeletal: Denies arthralgias Integumentary Denies abscess Neurologic Neurologic: Denies headache(s) Psychiatric Psychiatric: Denies anxiety or depression Endocrine Endocrinology: Denies polydipsia Hematologic/Lymphatic Hematologic/Lymphatic: Denies easy bleeding or easy bruising Allergic/Immunologic Allergic/Immunologic ED: Denies mouth swelling or tongue swelling EXAM Physical Exam Narrative Exam Narrative: 20-year-old female no acute distress. Vital signs stable. She is afebrile. She does not look septic or toxic. She does not look significantly dehydrated. Her heart rate is elevated 125. H EENT exam unremarkable. Moist with membranes. Neck nontender no lymphadenopathy. Lungs clear to auscultation bilaterally. Heart tachycardic rate 120 no murmur. Abdomen soft, nontender, nondistended, normal bowel sounds without peritoneal signs. Gravid nontender uterus. Moving all 4 extremities. No significant edema. Neurologically she is awake and alert with no focal motor deficits. Const Vital Signs: 02/08/23 14:43 Temperature 98 F Temperature Source Temporal Pulse Rate 125 H Respiratory Rate 18 Blood Pressure 128/90 H Blood Pressure Mean 102 Pulse Ox 98 Oxygen Delivery Method Room Air Positive well nourished and well developed; Negative for cachectic, contractures or unkempt General Appearance ED: well developed and NAD; Negative for unkempt, cachectic, contractures or pallor Nutritional Appearance: Negative for cachectic HEENT Reports moist mucous membranes; Denies dry mucous membranes normocephalic and atraumatic; Negative for trauma or tenderness Mouth ED: No dry mucous membranes Mouth: No dry mucous membranes Eyes PERRL and EOMs intact bilaterally General Eye ED: Negative for pale conjunctiva or scleral icterus Neck no lymphadenopathy, supple and no JVD General: Negative for tenderness Carotids: Negative for other Lymph Lymphatic: Negative for other Resp normal respiratory effort and clear to auscultation bilaterally Effort and Inspection: Negative for respiratory distress Auscultation: Negative for rales, rhonchi or wheezes Cardio regular rhythm, S1 normal heart sound, S2 normal heart sound and no murmurs; Negative for regular rate Rate: tachycardic GI non-tender, non-distended and no masses Inspection: Negative for abdominal distention Auscultation: normoactive bowel sounds Palpation: soft; Negative for tender or guarding Back/Spine no CVA tenderness General Back: Negative for CVA tenderness Cervical Spine: Negative for cervical spine tenderness Thoracic Spine / Upper Back: Negative for thoracic spinal tenderness Lumbar Spine / Lower Back: Negative for lumbar spinal tenderness Coccyx: Negative for other Extremity full ROM General Extremety ED: Negative for edema or tenderness General Extremity: Negative for edema Neuro CN's II-XII intact bilaterally and moves all extremities Sensorium / Orientation: alert, oriented to person, oriented to place and oriented to time; Negative for orientation impaired or confused Motor Exam: strength 5/5 throughout Psych mental status grossly normal and thought process normal Appearance: Negative for unkempt Attitude: No agitated Mood & Affect: Negative for depressed, anxious or tearful Skin no wounds General Skin Exam: Negative for jaundice or pallor Lesions: no lesions Rashes: no rashes MDM MDM MDM Narrative Medical decision making narrative: 23-year-old female 15 weeks gestation of her second . Is had a prior miscarriage. Has gestational diabetes. Basically having nausea and vomiting this week. Will be treated with IV fluids and IV Zofran. P.o. fluid challenge. Urinalysis and chemistry panel due to her gestational diabetes. Clinically she looks well. We will also obtain heart tones. Repeat exam patient doing better at 3:55 PM. Ambulating in the hallway coming back from the restroom. We discussed her test results. She has been able drink some water and ice chips. Once we check her urinalysis she will be discharged home. Prescription for Zofran. Follow-up with her OB. Patient doing well at 4:23 PM. She will be discharged home. Zofran for nausea. Fluids and rest. History & Record Review Discussion w/independent historian: Patient Lab Data Attestation: I reviewed the patient's lab results. Lab results narrative: Chemistries show potassium of 3.3. Consistent with nausea and vomiting. Gap of 8. BUN of 5 creatinine 0.5. Glucose of 80. Nurse reported heart tones of around 155. Urinalysis negative no signs of infection. Ketones consistent with mild dehydration. But no nitrites or white cells. Only rare bacteria. Labs: Laboratory Results - last 24 hr 02/08/23 02/08/23 15:00 15:54 Sodium 139 Potassium 3.3 L Chloride 111 H Carbon Dioxide 20.0 L Anion Gap 8 BUN 5 L Creatinine 0.56 Estim Creat Clear Calc 134.92 Est GFR (MDRD) Af Amer 173 Est GFR (MDRD) Non-Af 143 BUN/Creatinine Ratio 8.9 L Glucose 80 Calcium 9.1 Urine Color Yellow Urine Clarity Sl. Cloudy Urine pH 7.0 Ur Specific [place] 1.015 Urine Protein 30 H Urine Glucose (UA) Normal Urine Ketones 150 A* Urine Occult Blood Negative Urine Nitrite Negative Urine Bilirubin Negative Urine Urobilinogen 4 H Ur Leukocyte Esterase 25 H Urine RBC 0 SEEN Urine WBC 0-5 SEEN Ur Squamous Epith Cells 0-5 SEEN Triple Phos Crystals 1+ Urine Bacteria RARE Urine Mucus 0 SEEN Discharge Plan Triage Chief Complaint: Nausea/Vomiting ED Provider: Kwasi Foster Dx/Rx/DC Orders Clinical Impression: Nausea & vomiting, Viral syndrome, History of gestational diabetes, Third trimester Instructions: ED Vomiting and Diarrhea ... Prescriptions: New ondansetron 4 mg tablet,disintegrating 4 mg PO Q6H PRN (Reason: nausea and vomiting) Qty: 7 0RF Primary Care Provider: Care Physician,No Primary Referrals: Adriel Stringer MD [Med Staff - Active Staff] - 3-5 Days if not improving Care Physician,No Primary [Primary Care Provider] - Activity Restrictions/Additional Instructions: Plenty of fluids and rest. Zofran as needed for nausea. Follow-up with your [employer]ES[employer] EQUIPMENT MONITOR as needed. Return if unable to keep fluids down or feeling worse. Disposition Disposition: Home, Self Care
[2023-02-08] MEDS: 0.9% Normal Saline 1,000 ML 1000 ML IV (15:02)
[2023-02-08] MEDS: Ondansetron 4 MG/2 ML Vial IV (15:02)
[2023-02-08 15:27] LABS: Anion Gap 8 (5-15); BUN 5 mg/dL (7-18); BUN/Creat Ratio 8.9 RATIO (10-20); Calcium,Total 9.1 mg/dL (8.5-10.1); Chloride 111 mmol/L (98-107); Creatinine, Serum 0.56 mg/dL (0.55-1.02); EST Glomerular Filtration Rate 143 mL/min (>60); Est Glom Filt Rate - Afr Amer 173 mL/min (>60); Estimated Creatinine Clearance 134.92 ml/min; Glucose 80 mg/dL (74-106); Potassium 3.3 mmol/L (3.5-5.1); Sodium Level 139 mmol/L (136-145)
[2023-02-08 16:04] LABS: Mucous, Urine 0 SEEN /hpf (<or=2+); Red Blood Cells-Urine 0 SEEN /hpf (0-5)
[2023-02-08 16:11] LABS: Color, Urine Yellow (Yellow); Glucose, Dipstick Normal (Normal); Leukocyte Esterase-Dipstick 25 /ul (Negative); Nitrite-Dipstick Negative (Negative); Occult Blood-Urine Negative /ul (Negative); Protein-Dipstick 30 mg/dl (Negative); Specific Gravity, Urine 1.015 (1.002-1.030); Urine Bilirubin Dipstick Negative (Negative); Urine Clarity Sl. Cloudy (Clear); Urine Urobilinogen 4 mg/dl (Normal)
[2023-02-08 16:14] LABS: Ketone-Dipstick 150 mg/dl (Negative)
[2023-02-08 16:17] LABS: Bacteria RARE /hpf (None Seen); Squamous Epithelial Cells - UA 0-5 SEEN /hpf (5-10); White Blood Cells 0-5 SEEN /hpf (0-5)
[2023-02-08 16:22] LABS: Triple Phosphate Crystals Ur 1+ /hpf (<or=1+)
[2023-02-08 16:23] VITALS: PULSE 88; RESP 16; O2SAT 99
== END 2023-02-08 16:32 | disposition home or self-care (01) ==
PROVIDERS: Emergency Provider Emergency Medicine; Visit Provider Emergency Medicine
DX: O21.2 Late vomiting of pregnancy (principal); O98.513 Other viral diseases complicating pregnancy, third trimester; B34.9 Viral infection, unspecified; Z3A.35 35 weeks gestation of pregnancy
CPT/HCPCS: 80048; 81001; 96361; 96374; 99283; J7030; A4216; J2405

== ENCOUNTER 2023-03-04 12:15 | Outpatient (CLI) | payer OTHER, MEDICAID, SELFPAY ==
[2023-03-04 12:27] VITALS: BMI 38.0
[2023-03-04 12:49] VITALS: TEMP 37.3; O2SAT 98
[2023-03-04 12:50] VITALS: BP 123/80; PULSE 78
[2023-03-04 13:10] LABS: ROM Internal Control Test YES-OK TO RESULT pt. (Internal QC); ROM Patient Test Negative (Negative)
--- NOTE | 2023-03-13 07:01 | PCM.PN.BLA ---
Progress Note Patient presenting for rule out rupture. ROM negative. Cervix unchanged. status reassuring. Discharge home with labor and rupture precautions.
== END 2023-03-04 13:35 | disposition home or self-care (01) ==
LOC: WPOUT 12:23 → WP 12:24
PROVIDERS: Visit Provider Student in an Organized Health Care Education/Training Program
DX: O47.9 False labor, unspecified (principal)
CPT/HCPCS: 59025; 59050; 84112; 99221; G0378

== ENCOUNTER 2023-03-06 07:13 | Inpatient (IN) | payer OTHER, MEDICAID, SELFPAY ==
[2023-03-06] VITALS (34 sets, daily range): BP systolic 102–163; BP diastolic 59–109; PULSE 66–99; RESP 16; TEMP 36.4–37.1; O2SAT 91–100; BMI 38.6
[2023-03-06] MEDS: Lactated Ringers 1,000 ML 50 ML IV (07:50)
[2023-03-06 08:11] LABS: Absolute Lymphocyte Count 1.87 X10^3/uL (0.83-4.51); Absolute Neutrophil Count 8.3 X10^3/uL (2.0-7.7); Basophil# 0.04 X10^3/uL; Basophil% 0.3 % (0-1); Eosinophil# 0.35 X10^3/uL; Hematocrit 34.5 % (37-47); Hemoglobin 11.3 g/dL (12.0-15.0); Lymphocyte # 1.87 X10^3/ul (0.83-4.51); Lymphocyte % 16.3 % (19-41); Mean Corp Hgb Conc 32.8 g/dL (32-36); Mean Corpuscular Hgb 28.3 pg (27.0-32.0); Mean Corpuscular Volume 86.5 fL (81-99); Monocyte# 0.76 X10^3/uL; Monocyte% 6.6 % (0-10); NRBC Flagged by Analyzer 0 % (0-5); Neutrophil # 8.27 X10^3/uL (2.7-7.7); Neutrophil % 72.1 % (47-70); Platelet Count 236 K/mm3 (150-450); RBC Distribution Width SD 43.4 fl (35.1-43.9); Red Blood Count 3.99 M/mm3 (4.2-5.4); White Blood Count 11.5 K/mm3 (4.4-11.0)
--- NOTE | 2023-03-06 08:11 | PCM.HP.BLA ---
History and Physical Date of Admission: 03/06/23 Chief complaint: Induction of labor GDM A2 History present illness: 23-year-old G2, P0 at 39 weeks and 0 days with HETAL 03/13/2023 arrives for induction of labor at term with GDM A2. Denies headache, vision changes, chest pain, shortness of breath, nausea vomit, right upper quadrant pain. Patient states good movement. is complicated by GDM A2, BMI 38, HSV-2 Obstetric history: G1: SAB G2: Current Past medical history: GDM A2, HSV Medications: Levemir 12 units every morning and 15 units every afternoon, Valtrex Allergies: Flonase Past surgical history: Septoplasty, colonoscopy,, tonsils and adenoids Family history: Denies history DVT or PE Social history: Denies smoking, alcohol use, drug use Review of systems: Besides above pertinent positives a full review of systems was performed and found to be negative Physical exam: Vitals: Pending General: Normal-appearing no acute distress HEENT: Normocephalic/atraumatic no cervical lymphadenopathy Cardiac/respiratory: No use of accessory muscles, nonlabored breathing Abdomen: Soft, nontender, gravid Pelvic exam: Sterile speculum exam performed, no HSV lesions noted. Cervical exam 3/60/-3 Extremities: No peripheral edema normal peripheral pulses Psych: Normal affect normal range and nonpressured speech Labs: White blood cell count 11.5, hemoglobin 11.3 hematocrit 34.5% platelets 236 Assessment and plan: 23-year-old G2, P0 at 39 weeks and 0 days arrives for induction of labor at term with GDM A2 Admit labor and delivery CEFM GBS negative Pitocin induction GDM A2: We will continue to monitor blood sugars and treat appropriately. Educated patient on need for treatment for blood sugars with insulin and discussed effects on baby both intrapartum and . Patient states understanding all questions answered HSV: Sterile speculum exam negative. Patient remains asymptomatic. Taking Valtrex suppression. All reassuring. Educated patient on HSV during labor, all questions answered patient states understanding Routine orders
[2023-03-06] MEDS: Oxytocin 15 Units/NS 250ml 15 UNITS/250 ML IV.SOLN 2 UNITS IV (08:25)
[2023-03-06 08:43] LABS: Syphilis Antibodies Non-reactive
[2023-03-06 09:35] LABS: Bedside Glucose 172 mg/dL (74-106)
[2023-03-06] MEDS: Dext 5%-0.45% NS 1,000 ML 125 ML IV (10:00)
[2023-03-06 10:50] LABS: Bedside Glucose 141 mg/dL (74-106)
[2023-03-06 10:50] LABS: Bedside Glucose 143 mg/dL (74-106)
--- NOTE | 2023-03-06 11:13 | PN.OBGYN_ITS ---
Subjective Subjective Doing well, having some back pain with contractions Objective Data Objective Data Vital Signs: Vital Signs Temp Pulse BP Pulse Ox 98.0 F 72 134/92 H 99 03/06/23 10:20 03/06/23 10:21 03/06/23 10:21 03/06/23 10:20 Weight: 102.058 kg Body Mass Index (BMI) 38.6 Intake & Output: Intake and Output for Last 24 Hours 03/04/23 03/05/23 03/06/23 23:59 23:59 23:59 Intake Total 116.01 / 116.01 Balance 116.01 / 116.01 Lab / Micro Data Result Diagrams: 03/06/23 07:50 Labs: Laboratory Results - last 24 hr 03/06/23 07:50: WBC 11.5 H, RBC 3.99 L, Hgb 11.3 L, Hct 34.5 L, MCV 86.5, MCH 2 8.3, MCHC 32.8, RDW Std Deviation 43.4, RDW Coeff of Marcos 14.0, Plt Count 236, MPV 10.0, Immature Gran % (Auto) 1.700 H, Neut % (Auto) 72.1 H, Lymph % (Auto) 16.3 L, [place] % (Auto) 6.6, Eos % (Auto) 3.0, Baso % (Auto) 0.3, Absolute Neuts (auto) 8.3 H, Absolute Lymphs (auto) 1.87, Nucleated RBC % 0 03/06/23 07:50: Blood Type O POSITIVE, Antibody Screen NEGATIVE 03/06/23 07:50: Syphilis Total Ab Non-reactive 03/06/23 09:13: POC Glucose 172 H 03/06/23 09:58: POC Glucose 143 H 03/06/23 10:26: POC Glucose 141 H Physical Exam Const alert, oriented x3 and no apparent distress Resp normal respiratory effort Cardio regular rate GI soft to palpation and non-tender Inspection: gravid Narrative: 60/-3, AROM clear fluid Extremity full ROM and no pedal edema Neuro moves all extremities, no focal motor deficits and no sensory deficits noted NST FHR Rate Baby A Baseline: 140 Variability:: Moderate Accelerations:: 15 x 15 Decelerations:: None FHR Category:: Category I Uterine Activity:: q5 min Assessment & Plan (1) Gestational diabetes: PLAN: Induction of labor at 39/0 weeks complicated by gestational diabetes type A2. Now on insulin. AROM clear fluid. Continue titrating Pitocin as tolerated . (2) HSV-2 (herpes simplex virus 2) infection:
[2023-03-06 11:21] LABS: Bedside Glucose 122 mg/dL (74-106)
[2023-03-06] MEDS: fentaNYL 100 MCG/2 ML Ampul IV (12:20)
[2023-03-06 12:31] LABS: Bedside Glucose 101 mg/dL (74-106)
[2023-03-06] MEDS: LACTATED RINGERS 500 ML 999 ML IV (12:38)
[2023-03-06] MEDS: fentaNYL-bupivacaine (epidural) 100 ML BAG EPIDURAL (13:22)
[2023-03-06 14:00] LABS: Bedside Glucose 97 mg/dL (74-106)
--- NOTE | 2023-03-06 15:50 | EX.PCM.OBRPT ---
Maternal Data Information Final HETAL: 03/13/23 Vaginal Delivery Operative Information Date of Procedure: 03/06/23 Pre-Operative Diagnosis: Crowe intrauterine at term, GDMA2 Post-Operative Diagnosis: Crowe intrauterine at term, GDMA2 Surgery / Procedure Performed: Spontaneous Vaginal Delivery Type of Anesthesia: Epidural Estimated Blood Loss: 300cc Findings Description of Procedure: Spontaneous vaginal delivery of viable male. Nuchal cord x1, loose, reduced. Baby to mom. Cord clamped and cut. Cord started to avulse, minimal movement with maternal pushing effort and expectant management. Therefore manual extraction of placenta was completed. Placenta in tact on exam. Bimanual exam cleared uterus of all clots and placental membranes. Perineal/vaginal abrasion, hemostatic without intervention. A Gender: Male (1 minute): 8 (5 minute): 9 Complication Complications: None
[2023-03-06] MEDS: Oxytocin 15 Units/NS 250ml 15 UNITS/250 ML IV.SOLN 83 UNITS IV (16:08)
[2023-03-06 16:16] LABS: Bedside Glucose 97 mg/dL (74-106)
[2023-03-06 16:40] LABS: Bedside Glucose 81 mg/dL (74-106)
[2023-03-06] MEDS: Ibuprofen 600 MG Tablet PO (21:42)
[2023-03-06] MEDS: Acyclovir 200 MG Capsule 400 MG PO (21:46)
[2023-03-07] VITALS (12 sets, daily range): BP systolic 127–144; BP diastolic 74–102; PULSE 65–88; RESP 16–18; TEMP 36.4–36.8; O2SAT 97–99
[2023-03-07 07:00] LABS: Bedside Glucose 88 mg/dL (74-106)
--- NOTE | 2023-03-07 07:49 | DCINST_ITS ---
Discharge Instructions Diet Discharge Diet: No restrictions Activity Discharge Activity: Return to Normal Activity, May Drive and May Shower May resume sexual activity in: 4-6 weeks Weight Bearing Status: Weight bearing as tolerated Dressing / Incision Call your doctor if your incision/area has: Continuous Slow Oozing and Foul Smelling Discharge Call your doctor if you observe: Fever of 101 or Higher, Shortness of breath and Chest pain Follow Up Care Please Follow Up With: Adriel Stringer MD When: 4 to 6 weeks Test Results: Test results from this visit will be discussed in further detail at your follow- up appointment, if applicable. Discharge Plan Admission Admit Date/Time: 03/06/23 07:13 Attending Provider: Milly Stringer Primary Care Provider: Care Physician,Kavya Primary Discharge Orders/Prescriptions Prescriptions: No Action ondansetron 4 mg tablet,disintegrating 4 mg PO Q6H PRN (Reason: nausea and vomiting) Qty: 7 0RF valacyclovir 500 mg tablet 500 mg PO BID Label Comments: TAKE 1 TABLET BY MOUTH TWICE DAILY Levemir FlexPen 100 unit/mL (3 mL) insulin pen 12 unit SUBCUT BREAKFAST Levemir FlexPen 100 unit/mL (3 mL) insulin pen 15 unit SUBCUT [facility] Label Comments: INJECT 10 UNITS SUBCUTANEOUSLY ONCE DAILY AT BEDTIME. Referrals / Follow Up: Care Physician,No Primary [Primary Care Provider] -
--- NOTE | 2023-03-07 07:50 | PN.OBGYN_ITS ---
Subjective Subjective No overnight complaints Objective Data Objective Data Vital Signs: Vital Signs Temp Pulse Resp BP Pulse Ox O2 Del Method 98.3 F 88 16 127/84 H 99 Room Air 03/07/23 04:16 03/07/23 04:16 03/07/23 04:16 03/07/23 04:16 03/07/23 04:16 03/06/23 23:53 Oxygen Delivery Method Room Air Weight: 225 lb Body Mass Index (BMI) 38.6 Intake & Output: Intake and Output for Last 24 Hours 03/05/23 03/06/23 03/07/23 23:59 23:59 23:59 Intake Total 1835.91 / 1835.91 Output Total 1200 / 1200 Balance 635.91 / 635.91 Lab / Micro Data Result Diagrams: 03/06/23 07:50 Labs: Laboratory Results - last 24 hr 03/06/23 07:50: WBC 11.5 H, RBC 3.99 L, Hgb 11.3 L, Hct 34.5 L, MCV 86.5, MCH 28.3, MCHC 32.8, RDW Std Deviation 43.4, RDW Coeff of Marcos 14.0, Plt Count 236, MPV 10.0, Immature Gran % (Auto) 1.700 H, Neut % (Auto) 72.1 H, Lymph % (Auto) 16.3 L, [place] % (Auto) 6.6, Eos % (Auto) 3.0, Baso % (Auto) 0.3, Absolute Neuts (auto) 8.3 H, Absolute Lymphs (auto) 1.87, Nucleated RBC % 0 03/06/23 07:50: Blood Type O POSITIVE, Antibody Screen NEGATIVE 03/06/23 07:50: Syphilis Total Ab Non-reactive 03/06/23 09:13: POC Glucose 172 H 03/06/23 09:58: POC Glucose 143 H 03/06/23 10:26: POC Glucose 141 H 03/06/23 11:03: POC Glucose 122 H 03/06/23 11:59: POC Glucose 101 03/06/23 13:26: POC Glucose 97 03/06/23 14:37: POC Glucose 97 03/06/23 15:59: POC Glucose 81 03/07/23 06:41: POC Glucose 88 Physical Exam Const alert, oriented x3, no apparent distress, average body habitus, healthy appearing and well nourished HEENT normocephalic and moist oral mucous membranes Eyes PERRL Neck full ROM Resp normal respiratory effort, no retractions and no use of accessory muscles GI GI Narrative: Soft, nontender, uterus firm and below umbilicus Extremity normal to inspection and full ROM Neuro moves all extremities and no focal motor deficits Psych mental status grossly normal, affect normal, speech normal and activity/motor behavior normal Assessment & Plan (1) Vaginal delivery: PLAN: day 1. Breast-feeding. Pain well controlled. Gestational diabetes will follow-up . 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
[2023-03-07] MEDS: Ibuprofen 600 MG Tablet PO ×2 (09:13→20:14)
[2023-03-07] MEDS: Acyclovir 200 MG Capsule 400 MG PO ×2 (16:35→23:00)
--- NOTE | 2023-03-07 23:23 | NURSING ---
BP taken at 2022 with a result of 144/102. Pt talking during this bp and was previously walking around room. BP retaken with a result of 135/92. Pt denies headache, blurry vision, upper epigastric pain.
[2023-03-08 02:50] VITALS: BP 130/78; PULSE 77; PULSE 81; RESP 18; TEMP 36.1; O2SAT 97
[2023-03-08] MEDS: Acyclovir 200 MG Capsule 400 MG PO (06:22)
[2023-03-08] MEDS: Ibuprofen 600 MG Tablet PO (06:25)
[2023-03-08 08:00] VITALS: BP 112/74; PULSE 84; RESP 18; TEMP 36.4; O2SAT 98
[2023-03-08 08:17] VITALS: BP 112/74; PULSE 83
--- NOTE | 2023-03-08 08:35 | PCM.DC.BLA ---
Discharge Summary Date of Admission: 03/06/23 Date of Discharge: 03/08/23 Summary: Patient arrived on 03/06/2023 for induction of labor for GDM A2. Subsequently delivered vaginally on 03/06/2023. Routine post recovery. Discharged home on 03/08/2023 we will follow-up with blood sugars Meaningful Use Info Meaningful Use Diagnoses (Choose all that apply): None applicable Discharge Plan Admission Admit Date/Time: 03/06/23 07:13 Primary Reason for Your Visit: Induction of labor Attending Provider: Milly Stringer Primary Care Provider: Care Kavya Bunn Primary Instructions Additional Instructions / Restrictions: Regular diet. Weightbearing as tolerated. Okay to shower. No intercourse for 4 to 6 weeks. Call if fevers, chills, chest pain, shortness of breath. Follow-up 4 to 6 weeks Discharge Orders/Prescriptions Prescriptions: No Action ondansetron 4 mg tablet,disintegrating 4 mg PO Q6H PRN (Reason: nausea and vomiting) Qty: 7 0RF valacyclovir 500 mg tablet 500 mg PO BID Label Comments: TAKE 1 TABLET BY MOUTH TWICE DAILY Levemir FlexPen 100 unit/mL (3 mL) insulin pen 12 unit SUBCUT BREAKFAST Levemir FlexPen 100 unit/mL (3 mL) insulin pen 15 unit SUBCUT [facility] Label Comments: INJECT 10 UNITS SUBCUTANEOUSLY ONCE DAILY AT BEDTIME. Referrals / Follow Up: Care Physician,Kavya Primary [Primary Care Provider] - Disposition Discharge Orders: Discharge Patient (Routine); Ordered 03/08/23 Ordered By: Dr. Adriel Stringer
--- NOTE | 2023-03-08 08:37 | PCM.PN.OB ---
Subjective Subjective No overnight complaints. Denies headache, vision change, chest pain, shortness of breath, nausea vomit, right upper quadrant pain Objective Data Objective Data Vital Signs: Vital Signs Temp Pulse Resp BP Pulse Ox O2 Del Method 97 F L 83 18 112/74 97 Room Air 03/08/23 02:50 03/08/23 08:17 03/08/23 02:50 03/08/23 08:17 03/08/23 02:50 03/08/23 02:50 Oxygen Delivery Method Room Air Weight: 225 lb Body Mass Index (BMI) 38.6 Intake & Output: Intake and Output for Last 24 Hours 03/06/23 03/07/23 03/08/23 23:59 23:59 23:59 Intake Total 1835.91 / 1835.91 Output Total 1200 / 1200 Balance 635.91 / 635.91 Lab / Micro Data Result Diagrams: 03/06/23 07:50 Physical Exam Const alert, oriented x3, no apparent distress, average body habitus, healthy appearing and well nourished HEENT normocephalic and moist oral mucous membranes Eyes PERRL Neck full ROM Resp normal respiratory effort, no retractions and no use of accessory muscles GI GI Narrative: Soft, nontender, uterus firm and below umbilicus Extremity normal to inspection and full ROM Neuro moves all extremities and no focal motor deficits Psych mental status grossly normal, affect normal, speech normal and activity/motor behavior normal Assessment & Plan (1) Vaginal delivery: PLAN: day 2. Breast-feeding. Pain well controlled. Educated patient on recovery including constipation. Educated on options for control and discussed need for follow-up for gestational diabetes and to be seen in 4 to 6 weeks. Okay to discharge home today
== END 2023-03-08 10:12 | disposition home or self-care (01) | DRG 807 ==
PROVIDERS: Admitting Provider Student in an Organized Health Care Education/Training Program; Visit Provider Student in an Organized Health Care Education/Training Program
DX: O24.424 Gestational diabetes mellitus in childbirth, insulin controlled (principal); Z37.0 Single live birth; O69.81X0 Labor and delivery complicated by cord around neck, without compression, not applicable or unspecified; Z3A.39 39 weeks gestation of pregnancy; Z86.19 Personal history of other infectious and parasitic diseases; Z87.891 Personal history of nicotine dependence
CPT/HCPCS: 59025; 59050; 82962; 85025; 86780; 86850; 86900; 86901; 99221; J7120; G0378; J7799

== ENCOUNTER 2023-03-25 04:21 | Emergency (ER) | payer OTHER, MEDICAID, SELFPAY ==
[2023-03-25 04:24] VITALS: BP 128/88; PULSE 76; RESP 20; TEMP 36.6; O2SAT 99; BMI 35.8
[2023-03-25 04:50] LABS: Mucous, Urine 0 SEEN /hpf (<or=2+); Red Blood Cells-Urine 0 SEEN /hpf (0-5)
[2023-03-25 05:03] LABS: Color, Urine Yellow (Yellow); Glucose, Dipstick Normal (Normal); Ketone-Dipstick Negative (Negative); Leukocyte Esterase-Dipstick 500 /ul (Negative); Nitrite-Dipstick Negative (Negative); Occult Blood-Urine 25 /ul (Negative); Protein-Dipstick 15 mg/dl (Negative); Urine Bilirubin Dipstick Negative (Negative); Urine Clarity Sl. Cloudy (Clear); Urine Urobilinogen Normal (Normal); Urine pH 6.5 (5.0 - 8.0)
[2023-03-25] MEDS: 0.9% Normal Saline 1,000 ML 1000 ML IV (05:17)
[2023-03-25] MEDS: Morphine 4 MG/ML Syringe IV ×2 (05:18→07:15)
[2023-03-25] MEDS: Ondansetron 4 MG/2 ML Vial IV (05:18)
[2023-03-25 05:21] LABS: Absolute Neutrophil Count 10.5 X10^3/uL (2.0-7.7); Basophil# 0.07 X10^3/uL; Basophil% 0.5 % (0-1); Eosinophils% 4.1 % (0-5); Hemoglobin 11.5 g/dL (12.0-15.0); Lymphocyte % 15.9 % (19-41); Mean Corp Hgb Conc 31.1 g/dL (32-36); Mean Corpuscular Volume 86.9 fL (81-99); Mean Platelet Vol. 9.1 fl (6.2-12.0); Monocyte# 0.94 X10^3/uL; Monocyte% 6.5 % (0-10); NRBC Flagged by Analyzer 0 % (0-5); Neutrophil # 10.53 X10^3/uL (2.7-7.7); Neutrophil % 72.5 % (47-70); Platelet Count 336 K/mm3 (150-450); RBC Distribution Width CV 13.1 % (11.6-14.6); RBC Distribution Width SD 41.5 fl (35.1-43.9); Red Blood Count 4.26 M/mm3 (4.2-5.4); White Blood Count 14.5 K/mm3 (4.4-11.0)
[2023-03-25 05:41] LABS: Anion Gap 9 (5-15); BUN 17 mg/dL (7-18); BUN/Creat Ratio 19.7 RATIO (10-20); Chloride 109 mmol/L (98-107); Creatinine, Serum 0.86 mg/dL (0.55-1.02); EST Glomerular Filtration Rate 86 mL/min (>60); Est Glom Filt Rate - Afr Amer 105 mL/min (>60); Estimated Creatinine Clearance 87.85 ml/min; Glucose 103 mg/dL (74-106); Potassium 3.5 mmol/L (3.5-5.1); Sodium Level 143 mmol/L (136-145)
[2023-03-25 05:44] LABS: Bacteria RARE /hpf (None Seen); Squamous Epithelial Cells - UA 0-5 SEEN /hpf (5-10); White Blood Cells 10-25 SEEN /hpf (0-5)
--- NOTE | 2023-03-25 05:46 | CT_ITS ---
EXAM: CT ABDOMEN AND PELVIS WITH INTRAVENOUS CONTRAST CLINICAL INDICATION: llq abdominal pain TECHNIQUE: Helically acquired images were obtained of the abdomen and pelvis with intravenous contrast. This CT exam was performed using one or more of the following dose reduction techniques: automated exposure control, adjustment of the mA and/or kV according to patient size, and/or use of iterative reconstruction technique. CONTRAST: IV 100mL Isovue-370 COMPARISON: 07/29/2020 FINDINGS: LOWER THORAX: Unremarkable. Lung bases are clear. No cardiomegaly. No significant pericardial effusion. ABDOMEN: LIVER: Unremarkable. Homogeneous. No focal mass. GALLBLADDER AND BILE DUCTS: Unremarkable. No calcified gallstones. No gallbladder distention or wall edema. No intra- or extrahepatic biliary ductal dilation. PANCREAS: Unremarkable. No focal cystic or solid mass. SPLEEN: Unremarkable. Normal size without focal cystic or solid mass. ADRENALS: Unremarkable. No nodules. KIDNEYS AND URETERS: There is a 4 mm stone in the left UVJ causing mild obstructive changes. Normal renal size and position. No other stones identified in the kidneys or ureters. STOMACH AND BOWEL: Unremarkable. No stomach or bowel distention. No focal inflammatory change. PELVIS: APPENDIX: The appendix is normal. BLADDER: Unremarkable. REPRODUCTIVE: Mildly prominent uterus consistent with status. No mass. ABDOMEN and PELVIS: INTRAPERITONEAL SPACE: Unremarkable. No ascites or other fluid collection. No free air. BONES/JOINTS: Unremarkable. No suspicious lytic or blastic abnormality. SOFT TISSUES: Unremarkable. No discrete abdominal or pelvic wall hernia. VASCULATURE: Unremarkable. Abdominal aorta is non-dilated. LYMPH NODES: Unremarkable. No enlarged lymph nodes. CT/Abdomen/Pelvis W IV Cont ONLY IMPRESSION: There is a 4 mm stone in the left UVJ causing mild obstructive changes. Electronically Signed: René Barney MD at 6:43 EDT ,
[2023-03-25 06:22] VITALS: BP 147/97; PULSE 64; RESP 16; O2SAT 100
--- NOTE | 2023-03-25 07:13 | ED.VIS.FEGU ---
HPI HPI - Female History of Present Illness Chief Complaint: Flank Pain Narrative Narrative: 23-year-old female with left flank pain. She has a history of UTI and pyelonephritis but states it does not feel quite the same. She describes it as sharp. It was acute in onset. She has nausea associated with it. Denies urinary complaints or vaginal complaints. No diarrhea or constipation. PFSH PFSH Medical History Anxiety Asthma Depression Genital herpes affecting Gestational diabetes IBS (irritable bowel syndrome) Home Medications valacyclovir 500 mg tablet 500 mg PO BID hx HSV 03/06/23 [History Last Taken Unknown] hydrocodone-acetaminophen 5-325mg 5mg-325mg 1 tab PO Q6H PRN PRN Pain 3 days #12 TABLETS 03/25/23 [Rx Last Taken Unknown] ondansetron 4 mg disintegrating tablet 4 mg PO Q8H PRN PRN Nausea #20 tabs 03/25/23 [Rx Last Taken Unknown] Allergy/AdvReac Type Severity Reaction Status Date / Time bee venom protein (honey bee) Allergy Hives Verified 03/06/23 07:41 cashew nut Allergy Swelling Verified 03/06/23 07:41 tree nut Allergy Anaphylaxis Verified 03/06/23 07:41 fluticasone [From Flonase] AdvReac Other Verified 03/06/23 07:41 Surgical History History of nasal septoplasty History of surgery History of tonsillectomy and adenoidectomy Social History Smoking Status: Never smoker ROS ROS ED Constitutional Constitutional ED: Denies chills, fever(s) or sweats Eyes Eyes: Denies blurry vision or change in vision ENT ENT ED: Denies ear pain or sore throat Cardiovascular Cardiovascular: Denies chest pain, palpitations or racing heartbeat Respiratory/Chest Respiratory/Chest: Denies cough, dyspnea or sputum Gastrointestinal Gastrointestinal: Reports nausea and vomiting; Denies constipation or diarrhea Genitourinary Genitourinary ED: Denies dysuria, hematuria or urinary frequency Musculoskeletal Musculoskeletal: Denies arthralgias, myalgias or neck pain Integumentary Denies abscess, Abrasions or rash Neurologic Neurologic: Denies headache(s), paresthesias or weakness Psychiatric Psychiatric: Denies anxiety, depression, suicidal ideation or suicidal thoughts Endocrine Endocrinology: Denies polydipsia or polyuria EXAM Physical Exam Const Vital Signs: 03/25/23 04:24 03/25/23 06:22 Temperature 97.8 F Temperature Source Oral Pulse Rate 76 64 Respiratory Rate 20 H 16 Blood Pressure 128/88 H 147/97 H Blood Pressure Mean 101 113 Pulse Ox 99 100 Oxygen Delivery Method Room Air Room Air Positive well nourished General Appearance ED: NAD HEENT Reports moist mucous membranes Eyes PERRL and EOMs intact bilaterally Resp normal respiratory effort Cardio regular rate and regular rhythm GI Palpation: tender LLQ Back/Spine General Back: CVA tenderness left Neuro oriented x3 and CN's II-XII intact bilaterally Sensorium / Orientation: alert Psych mental status grossly normal Skin no rashes or lesions noted and no wounds MDM MDM MDM Narrative Medical decision making narrative: Patient presenting with left lower quadrant abdominal pain. Differential includes diverticulitis, UTI, pyelonephritis, colitis, ovarian torsion, ovarian cyst. Patient medicated with morphine, Toradol, Zofran. Lab work was obtained. CBC shows slight leukocytosis of 14.5. Hemoglobin stable 11.5. Renal function electrolytes within normal limits. Urinalysis shows no infection. CT of the abdomen pelvis with IV contrast was obtained and this shows a 4 mm UVJ stone on the left. Patient counseled finding. She was given another dose of morphine here as well as an oxycodone. She will be given a prescription for [place], Zofran. She is given follow-up with urology. Return precautions discussed. Impression: 1. 4 mm UVJ stone 2. Nausea/vomiting Lab Data Attestation: I reviewed the patient's lab results. Labs: Laboratory Results - last 24 hr 03/25/23 03/25/23 03/25/23 04:41 05:10 05:10 WBC 14.5 H RBC 4.26 Hgb 11.5 L Hct 37.0 MCV 86.9 MCH 27.0 MCHC 31.1 L RDW Std Deviation 41.5 RDW Coeff of Marcos 13.1 Plt Count 336 MPV 9.1 Immature Gran % (Auto) 0.500 Neut % (Auto) 72.5 H Lymph % (Auto) 15.9 L [place] % (Auto) 6.5 Eos % (Auto) 4.1 Baso % (Auto) 0.5 Absolute Neuts (auto) 10.5 H Absolute Lymphs (auto) 2.30 Nucleated RBC % 0 Sodium 143 Potassium 3.5 Chloride 109 H Carbon Dioxide 25.0 Anion Gap 9 BUN 17 Creatinine 0.86 Estim Creat Clear Calc 87.85 Est GFR (MDRD) Af Amer 105 Est GFR (MDRD) Non-Af 86 BUN/Creatinine Ratio 19.7 Glucose 103 Calcium 9.0 Urine Color Yellow Urine Clarity Sl. Cloudy Urine pH 6.5 Ur Specific [place] 1.020 Urine Protein 15 H Urine Glucose (UA) Normal Urine Ketones Negative Urine Occult Blood 25 H Urine Nitrite Negative Urine Bilirubin Negative Urine Urobilinogen Normal Ur Leukocyte Esterase 500 H Urine RBC 0 SEEN Urine WBC 10-25 SEEN Ur Squamous Epith Cells 0-5 SEEN Urine Bacteria RARE Urine Mucus 0 SEEN Radiography Diagnostic Testing: Clinical Impression(s) from Imaging Studies Abdomen/Pelvis CT 03/25/23 05:46 IMPRESSION: There is a 4 mm stone in the left UVJ causing mild obstructive changes. Electronically Signed: René Barney MD at 6:43 EDT , Discharge Plan Triage Chief Complaint: Flank Pain ED Provider: Brent Narvaez Dx/Rx/DC Orders Prescriptions: New hydrocodone-acetaminophen 5-325 mg tablet 1 tab PO Q6H PRN PRN (Reason: Pain) 3 Days Qty: 12 0RF ondansetron 4 mg tablet,disintegrating 4 mg PO Q8H PRN PRN (Reason: Nausea) Qty: 20 0RF No Action valacyclovir 500 mg tablet 500 mg PO BID Label Comments: TAKE 1 TABLET BY MOUTH TWICE DAILY Primary Care Provider: Care Physician,No Primary Referrals: Maggie Larsen MD [Med Staff - Active Staff] - As soon as possible Care Physician,No Primary [Primary Care Provider] - Disposition Disposition: Home, Self Care
== END 2023-03-25 07:23 | disposition home or self-care (01) ==
PROVIDERS: Emergency Provider Student in an Organized Health Care Education/Training Program; Visit Provider Student in an Organized Health Care Education/Training Program
DX: N20.1 Calculus of ureter (principal); R11.2 Nausea with vomiting, unspecified
CPT/HCPCS: 74177; 80048; 81001; 85025; 96361; 96374; 96375; 99283; J7030; Q9967; A4216; J2405

== ENCOUNTER 2023-06-27 15:46 | Emergency (ER) | payer OTHER, MEDICAID, SELFPAY ==
[2023-06-27 15:47] VITALS: BP 123/85; PULSE 74; RESP 16; TEMP 35.9; O2SAT 97; BMI 36.6
--- NOTE | 2023-06-27 16:01 | CT_ITS ---
INDICATION: left flank pain EXAMINATION: CT ABDOMEN AND PELVIS WITHOUT CONTRAST - CT Abdomen And Pelvis W/O Contrast Injection TECHNIQUE: Helically acquired images were obtained of the abdomen and pelvis without oral or IV contrast. A radiation dose optimization technique was used for this scan. IV Contrast dosage and agent: None. Oral contrast: None. RADIATION DOSAGE (If Supplied By Facility): CTDIvol = ( 19.63 ) mGy, DLP = ( 1034.94 ) mGycm COMPARISON: March 25, 2023 FINDINGS: LOWER CHEST: Lung bases are clear. No cardiomegaly or pericardial effusion. The lack of intravenous contrast limits evaluation of solid visceral organs. LIVER: Homogeneous. No focal mass. GALLBLADDER AND BILIARY TREE: The gallbladder is contracted. No intra- or extrahepatic biliary ductal dilation. PANCREAS: No focal cystic or solid mass. SPLEEN: Normal size without focal cystic or solid mass. ADRENAL GLANDS: No nodules. KIDNEYS AND URETERS: Normal renal size and position. There is a nonobstructing 2.4 mm left renal calculus. No hydronephrosis. PERITONEUM: No ascites or free air. No other fluid collection. BOWEL: No evidence of acute appendicitis. No stomach or bowel distension. No focal inflammatory change. LYMPH NODES: No enlarged mesenteric or retroperitoneal lymph nodes. VESSELS: Aorta is non-dilated. URINARY BLADDER: The bladder is incompletely distended. There is mild bladder wall thickening. There is adjacent stranding. REPRODUCTIVE ORGANS: No pelvic masses. ABDOMINAL WALL: No discrete abdominal or pelvic wall hernia. BONES: No lytic or blastic abnormality. CT/Abdomen/Pelvis without Cont IMPRESSION: Findings suggestive of cystitis. Nonobstructing 2.4 mm left renal calculus. Electronically Signed: Shazia Sharif MD at 17:20 EDT ,
--- NOTE | 2023-06-27 16:02 | EDS_ITS ---
HPI History of Present Illness Chief Complaint: Flank Pain Detail of Chief Complaint: Flank pain Informant: patient Narrative Narrative: Patient presents with left flank pain that started initially yesterday and was mild for about 30 minutes and then resolved. Patient states that pain came back suddenly prior to arrival in emergency department and was more severe. She complains of a crampy pain in the lower abdomen. She has had nausea but no vomiting. Patient has had similar pain in the past when she had a kidney stone. Patient also has had frequent UTIs in the past. She denies fever. She denies dysuria. She denies hematuria. [facility] Medical History Anxiety Asthma Depression Genital herpes affecting Gestational diabetes IBS (irritable bowel syndrome) Home Medications valacyclovir 500 mg tablet 500 mg PO BID hx HSV 03/06/23 [History Last Taken Unknown] hydrocodone-acetaminophen 5-325mg 5mg-325mg 1 tab PO Q6H PRN PRN Pain 3 days #12 TABLETS 03/25/23 [Rx Last Taken Unknown] ondansetron 4 mg disintegrating tablet 4 mg PO Q8H PRN PRN Nausea #20 tabs 03/25/23 [Rx Last Taken Unknown] Allergy/AdvReac Type Severity Reaction Status Date / Time bee venom protein (honey bee) Allergy Hives Verified 06/27/23 15:47 cashew nut Allergy Swelling Verified 06/27/23 15:47 tree nut Allergy Anaphylaxis Verified 06/27/23 15:47 fluticasone [From Flonase] AdvReac Other Verified 06/27/23 15:47 Surgical History History of nasal septoplasty History of surgery History of tonsillectomy and adenoidectomy Social History Smoking Status: Never smoker ROS ROS ED Review of Systems ROS Unobtainable: other Constitutional Constitutional ED: Reports lethargy; Denies chills, fever(s), sweats or weight loss Eyes Eyes: Denies blurry vision, change in vision or diplopia ENT ENT ED: Denies rhinorrhea or sore throat Cardiovascular Cardiovascular: Denies chest pain, orthopnea or racing heartbeat Respiratory/Chest Respiratory/Chest: Denies cough, dyspnea, dyspnea on exertion, orthopnea or sputum Gastrointestinal Gastrointestinal: Reports abdominal pain; Denies diarrhea, nausea or vomiting Genitourinary Genitourinary ED: Denies dysuria, hematuria or urinary frequency Musculoskeletal Musculoskeletal: Reports back pain; Denies arthralgias, myalgias or neck pain Integumentary Denies abscess, Abrasions or rash Neurologic Neurologic: Denies headache(s) or weakness Psychiatric Psychiatric: Denies anxiety, depression or suicidal thoughts Endocrine Endocrinology: Denies polydipsia, polyphagia or polyuria Hematologic/Lymphatic Hematologic/Lymphatic: Denies easy bleeding, easy bruising or lymphadenopathy Allergic/Immunologic Allergic/Immunologic ED: Denies mouth swelling, tongue swelling or urticaria EXAM Physical Exam Const Vital Signs: 06/27/23 15:47 06/27/23 18:00 Temperature 96.7 F L Temperature Source Temporal Pulse Rate 74 62 Respiratory Rate 16 16 Blood Pressure 123/85 H 138/85 H Blood Pressure Mean 97 102 Pulse Ox 97 97 Oxygen Delivery Method Room Air Room Air Positive well nourished and well developed General Appearance ED: well developed and NAD HEENT Reports TM's clear and moist mucous membranes normocephalic and atraumatic; Negative for trauma or tenderness Tympanic Membrane ED: Yes TM's clear Eyes PERRL and EOMs intact bilaterally General Eye ED: Negative for pale conjunctiva or scleral icterus Neck no lymphadenopathy, supple and no JVD General: Negative for tenderness Chest Wall inspection of chest normal and palpation of chest normal Chest: Negative for tenderness Resp normal respiratory effort and clear to auscultation bilaterally Effort and Inspection: Negative for respiratory distress or pain with movement Auscultation: Negative for rhonchi, wheezes or diminished lung sounds Cardio regular rate, regular rhythm, S1 normal heart sound, S2 normal heart sound and no murmurs Peripheral Pulses: pulses 2+ throughout GI normal to inspection, nondistended, normoactive bowel sounds, soft to palpation, non-distended and no masses GI Narrative: Tenderness palpation over the right lower quadrant and suprapubic and left lower quadrant regions. No rebound, rigidity, or peritoneal signs. She has some mild CVA tenderness on the left. Back/Spine no thoracic nor lumbar tenderness Back/Spine Narrative: Mild CVA tenderness on the left. Extremity normal to inspection General Extremety ED: Negative for edema General Extremity: Negative for edema Neuro oriented x3, CN's II-XII intact bilaterally, no sensory deficits noted and gait normal Sensorium / Orientation: awake, alert, oriented to person, oriented to place and oriented to time Motor Exam: strength 5/5 throughout and strength abnormal Psych mental status grossly normal Skin no rashes or lesions noted and no wounds MDM MDM MDM Narrative Medical decision making narrative: Patient presents with left flank pain and lower abdominal discomfort. In the differential would be UTI versus kidney stone versus other acute process. IV line established. She was medicate with Toradol. CBC with differential showed a white count of 10.1 with hemoglobin of 12 and platelet count of 316. Chemistries unremarkable. Serum Prag was negative. Urinalysis showed +1 bacteria but 0-5 WBCs and negative nitrites. Urine culture was sent. CT flank obtained showed a 2.4 mm left renal stone but no urolithiasis. No other acute process noted. At this point patient will be discharged to home. Etiology of her flank pain unclear although I suspect could be musculoskeletal. Patient does not anything for pain. She is advised to return if worsening pain, fever, vomiting, or condition should worsen anyway. Lab Data Labs: Laboratory Results - last 24 hr 06/27/23 06/27/23 16:10 16:45 WBC 10.1 RBC 4.60 Hgb 12.3 Hct 37.5 MCV 81.5 MCH 26.7 L MCHC 32.8 RDW Std Deviation 42.6 RDW Coeff of Marcos 14.5 Plt Count 316 MPV 8.7 Immature Gran % (Auto) 0.400 Neut % (Auto) 69.3 Lymph % (Auto) 19.9 [place] % (Auto) 6.6 Eos % (Auto) 3.4 Baso % (Auto) 0.4 Absolute Neuts (auto) 7.0 Absolute Lymphs (auto) 2.00 Nucleated RBC % 0 Sodium 137 Potassium 3.8 Chloride 106 Carbon Dioxide 26.0 Anion Gap 5 BUN 9 Creatinine 0.78 Estim Creat Clear Calc 96.86 Est GFR (MDRD) Af Amer 117 Est GFR (MDRD) Non-Af 97 BUN/Creatinine Ratio 11.5 Glucose 124 H Calcium 8.7 Serum , Qual NEGATIVE Urine Color Yellow Urine Clarity Clear Urine pH 6.5 Ur Specific [place] 1.015 Urine Protein 15 H Urine Glucose (UA) Normal Urine Ketones Negative Urine Occult Blood Negative Urine Nitrite Negative Urine Bilirubin Negative Urine Urobilinogen Normal Ur Leukocyte Esterase Negative Urine RBC 0 SEEN Urine WBC 0-5 SEEN Ur Squamous Epith Cells 0-5 SEEN Urine Bacteria 1+ Urine Mucus 0 SEEN Radiography Diagnostic Testing: Clinical Impression(s) from Imaging Studies Abdomen/Pelvis CT 06/27/23 16:01 IMPRESSION: Findings suggestive of cystitis. Nonobstructing 2.4 mm left renal calculus. Electronically Signed: Shazia Sharif MD at 17:20 EDT , Discharge Plan Triage Chief Complaint: Flank Pain ED Provider: Quintin Cobb Dx/Rx/DC Orders Clinical Impression: Acute flank pain Instructions: ED Flank Pain, Uncertain Cause Prescriptions: No Action valacyclovir 500 mg tablet 500 mg PO BID Patient Comments: TAKE 1 TABLET BY MOUTH TWICE DAILY hydrocodone-acetaminophen 5-325 mg tablet 1 tab PO Q6H PRN PRN (Reason: Pain) 3 Days Qty: 12 0RF ondansetron 4 mg tablet,disintegrating 4 mg PO Q8H PRN PRN (Reason: Nausea) Qty: 20 0RF Stand Alone Forms: ED Work / School Excuse Primary Care Provider: Care Physician,No Primary Referrals: Lee Roland MD [Med Staff - Active Staff] - 5-7 Days Care Physician,No Primary [Primary Care Provider] - Disposition Disposition: Home, Self Care Discharge Date/Time: 06/27/23 18:02
[2023-06-27] MEDS: 0.9% Normal Saline 1,000 ML 150 ML IV (16:08)
[2023-06-27] MEDS: Ketorolac 30 MG/ML Syringe IV (16:09)
[2023-06-27 16:16] LABS: Basophil# 0.04 X10^3/uL; Basophil% 0.4 % (0-1); Eosinophil# 0.34 X10^3/uL; Eosinophils% 3.4 % (0-5); Hematocrit 37.5 % (37-47); Hemoglobin 12.3 g/dL (12.0-15.0); Lymphocyte % 19.9 % (19-41); Mean Corp Hgb Conc 32.8 g/dL (32-36); Mean Corpuscular Hgb 26.7 pg (27.0-32.0); Mean Corpuscular Volume 81.5 fL (81-99); Mean Platelet Vol. 8.7 fl (6.2-12.0); Monocyte# 0.66 X10^3/uL; Monocyte% 6.6 % (0-10); NRBC Flagged by Analyzer 0 % (0-5); Neutrophil # 6.97 X10^3/uL (2.7-7.7); Neutrophil % 69.3 % (47-70); Platelet Count 316 K/mm3 (150-450); RBC Distribution Width CV 14.5 % (11.6-14.6); RBC Distribution Width SD 42.6 fl (35.1-43.9); White Blood Count 10.1 K/mm3 (4.4-11.0)
[2023-06-27 16:30] LABS: Anion Gap 5 (5-15); BUN 9 mg/dL (7-18); BUN/Creat Ratio 11.5 RATIO (10-20); Calcium,Total 8.7 mg/dL (8.5-10.1); Chloride 106 mmol/L (98-107); Creatinine, Serum 0.78 mg/dL (0.55-1.02); EST Glomerular Filtration Rate 97 mL/min (>60); Est Glom Filt Rate - Afr Amer 117 mL/min (>60); Estimated Creatinine Clearance 96.86 ml/min; Glucose 124 mg/dL (74-106); Potassium 3.8 mmol/L (3.5-5.1); Sodium Level 137 mmol/L (136-145)
[2023-06-27 16:46] LABS: Internal QC Validated? YES +Cl - CLEAR BKGD; Pregnancy, Serum, hCG Quali. NEGATIVE Negative
[2023-06-27 16:56] LABS: Mucous, Urine 0 SEEN /hpf (<or=2+); Red Blood Cells-Urine 0 SEEN /hpf (0-5)
[2023-06-27 17:01] LABS: Color, Urine Yellow (Yellow); Glucose, Dipstick Normal (Normal); Ketone-Dipstick Negative (Negative); Leukocyte Esterase-Dipstick Negative /ul (Negative); Nitrite-Dipstick Negative (Negative); Occult Blood-Urine Negative /ul (Negative); Protein-Dipstick 15 mg/dl (Negative); Specific Gravity, Urine 1.015 (1.002-1.030); Urine Bilirubin Dipstick Negative (Negative); Urine Clarity Clear (Clear); Urine Urobilinogen Normal (Normal); Urine pH 6.5 (5.0 - 8.0)
[2023-06-27 17:14] LABS: Bacteria 1+ /hpf (None Seen); Squamous Epithelial Cells - UA 0-5 SEEN /hpf (5-10); White Blood Cells 0-5 SEEN /hpf (0-5)
[2023-06-27 18:00] VITALS: BP 138/85; PULSE 62; RESP 16; O2SAT 97
== END 2023-06-27 18:02 | disposition home or self-care (01) ==
PROVIDERS: Emergency Provider Emergency Medicine; Visit Provider Emergency Medicine
DX: R10.9 Unspecified abdominal pain (principal)
CPT/HCPCS: 74176; 80048; 81001; 84703; 85025; 87086; 87088; 96361; 96374; 99283; J7030; A4216